=== PATIENT | male | born 1955 | race Caucasian/White ===

== ENCOUNTER 2017-04-22 12:25 | Outpatient (CLI) | payer OTHER | END 2017-04-22 12:26 | disposition home or self-care (01) | LOC: ULT 12:25 | PROVIDERS: ATTEND Internal Medicine | DX: R01.1 Cardiac murmur, unspecified (principal); I08.3 Combined rheumatic disorders of mitral, aortic and tricuspid valves | CPT/HCPCS: 93306 ==

== ENCOUNTER 2017-08-04 08:52 | Outpatient (CLI) | payer OTHER ==
[2017-08-04] MEDS ORDERED: Iopamidol 370 76% 100 ML VIAL ONE (16:53)
== END 2017-08-04 08:53 | disposition home or self-care (01) ==
LOC: BICCT 08:52
PROVIDERS: ATTEND Internal Medicine
DX: R91.1 Solitary pulmonary nodule (principal)
CPT/HCPCS: 71260

== ENCOUNTER 2018-04-25 09:08 | Outpatient (CLI) | payer OTHER ==
--- NOTE | 2018-04-25 14:53 | NM ---
RADIONUCLIDE 3 PHASE BONE SCAN: HISTORY: Right hip pain. Hip replacement 4 years ago. FINDINGS: Blood flow and blood pool images over the pelvis show no focal abnormalities or hip asymmetries. Leigh topenic defects at each hip are consistent with bilateral hip prostheses. Delayed images showed no a bnormal areas of uptake about the hips. Heterogeneous uptake at each wrist, elbow, shoulder, knee, a nd ankle and foot are consistent with scattered degenerative/osteoarthritic changes. IMPRESSION: 1. No acute abnormalities of the hips are demonstrated. 2. Scattered osteoarthritis of the appendicular skeleton. POS: CHERELLE
== END 2018-04-25 09:09 | disposition home or self-care (01) ==
LOC: NM 09:08
PROVIDERS: ATTEND Family Medicine Sports Medicine
DX: M25.551 Pain in right hip (principal); M19.91 Primary osteoarthritis, unspecified site; M19.032 Primary osteoarthritis, left wrist; M19.031 Primary osteoarthritis, right wrist; M19.022 Primary osteoarthritis, left elbow; M19.021 Primary osteoarthritis, right elbow; M19.012 Primary osteoarthritis, left shoulder; M19.011 Primary osteoarthritis, right shoulder; M17.0 Bilateral primary osteoarthritis of knee; M19.072 Primary osteoarthritis, left ankle and foot; M19.071 Primary osteoarthritis, right ankle and foot; Z96.641 Presence of right artificial hip joint
CPT/HCPCS: 78315; A9503

== ENCOUNTER 2019-03-24 07:48 | Outpatient (CLI) | payer MEDICARE, OTHER ==
--- NOTE | 2019-03-24 10:16 | RAD ---
3 VIEWS LEFT HAND: Date: 03/24/19 COMPARISON: None. HISTORY: Left hand pain. FINDINGS: 3 views of the left hand show no evidence of acute fracture or dislocation. There is joint space narr owing and osteophyte formation in the middle finger metacarpal phalangeal joint. Hardware is seen in the distal radius. There is joint space narrowing in the radiocarpal joint consistent with post-traum atic osteoarthritis. Mild joint space narrowing is seen in the interphalangeal joints of the fingers. IMPRESSION: Left hand osteoarthritis without acute osseous abnormality. POS: CET
--- NOTE | 2019-03-24 10:20 | RAD ---
3 VIEWS RIGHT HAND: Date: 03/24/19 COMPARISON: None. HISTORY: Pain in hand and wrist. FINDINGS: 3 views of right hand show no evidence of acute fracture or dislocation. Severe degenerative changes are seen in the wrist with joint space narrowing and osteophyte formation. There are osseous fragment s surrounding the wrist. A large cyst is seen in the distal radius. Minimal degenerative changes are seen in the hand. IMPRESSION: Severe right wrist degenerative change without acute osseous abnormality. POS: CET
== END 2019-03-24 07:49 | disposition home or self-care (01) ==
LOC: BICRAD 07:48
PROVIDERS: ATTEND Internal Medicine Rheumatology
DX: M25.541 Pain in joints of right hand (principal); M25.542 Pain in joints of left hand; M19.041 Primary osteoarthritis, right hand; M19.042 Primary osteoarthritis, left hand

== ENCOUNTER 2019-12-22 06:59 | Emergency (ER) | payer MEDICARE, OTHER ==
[2019-12-22 07:57] LABS: ALT (SGPT) 17 U/L (8-55); AST (SGOT) 17 U/L (5-34); Albumin 4.1 g/dL (3.4-4.8); Alkaline Phosphatase 76 U/L (40-110); Anion Gap 14 mmol/L (10-20); BUN (Urea Nitrogen) 28 mg/dL (8.4-25.7); Bilirubin, Total 0.6 mg/dL (0.2-1.2); Calc. Creatinine Clearance 0 mL/min (70-130); Calcium 9.3 mg/dL (7.8-10.44); Carbon Dioxide 16 mmol/L (23-31); Chloride 107 mmol/L (98-107); Estimated GFR-MDRD 67; Globulin 3.5 g/dL (2.4-3.5); Glucose 107 mg/dL (80-115); Potassium 3.7 mmol/L (3.5-5.1); Protein, Total 7.6 g/dL (5.8-8.1); Sodium 133 mmol/L (136-145)
[2019-12-22 08:00] LABS: Bacteria/HPF 2+ HPF (None Seen); Bilirubin Negative (Negative); Blood, Urine 1+ (Negative); Clarity Clear (Clear); Glucose, Urine (Dipstick) Normal (Negative); Ketone, Urine Negative (Negative); Leukocyte 500 Leu/uL (Negative); Nitrite 2+ (Negative); Protein, Urine (Dipstick) Negative (Neg-Trace); Squamous Epithelial None Seen HPF (0-3); Urobilinogen Normal mg/dL (Less than 2)
[2019-12-22 08:08] LABS: Band 32 % (5-11); Hemoglobin 13.1 g/dL (14.0-18.0); Lymphocytes 4 % (21-51); MDiff Complete? YES; Mean Corpuscular HGB CONC 33.3 g/dL (32.0-36.0); Mean Corpuscular Hemoglobin 27.8 pg (27.0-31.0); Mean Corpuscular Volume 83.4 fL (78.0-98.0); Mean Platelet Volume 9.6 fL (7.4-10.4); Monocytes 4 % (0-10); Neutrophil 60 % (42-75); Platelet Count 167 thou/uL (130-400); RBC Distribution Width 12.6 % (11.5-14.5); Red Blood Cell (RBC) Count 4.71 mill/uL (4.70-6.10); Vacuoles SLIGHT; White Blood Cell (WBC) Count 12.4 thou/uL (4.8-10.8)
--- NOTE | 2019-12-22 08:40 | RAD ---
PORTABLE CHEST: DATE: 12/22/2019. PROVIDED CLINICAL HISTORY: Fever. FINDINGS: Comparison 09/06/2013. Cardiac and mediastinal silhouette is within normal limits. No focal consolid ation, pleural fluid, or pneumothorax apparent. IMPRESSION: No evidence for an acute cardiopulmonary process. POS: RAMA
[2019-12-22] MEDS ORDERED: cefTRIAXone\\ROCEPHIN 2 GM VIAL ONE (10:04)
[2019-12-22 10:43] LABS: Lactic Acid 1.2 mmol/L (0.5-2.2)
== END 2019-12-22 11:05 | disposition home or self-care (01) ==
LOC: ERS 06:59
DX: N39.0 Urinary tract infection, site not specified (principal); N13.9 Obstructive and reflux uropathy, unspecified; E87.2 Acidosis; I10 Essential (primary) hypertension; F41.9 Anxiety disorder, unspecified
CPT/HCPCS: 36415; 51702; 71045; 80053; 81003; 81015; 83605; 85025; 87040; 87077; 87086; 87149; 87186; 93005; 94760; 96361; 96365; J0696

== ENCOUNTER 2019-12-23 13:18 | Inpatient (IN) | payer MEDICARE, OTHER ==
[~2019-12-23 13:18] MED LIST: Heparin 1,000 UNITS/ML VIAL ONE
[2019-12-23 13:57] LABS: Hemoglobin 12.7 g/dL (14.0-18.0); Mean Corpuscular HGB CONC 33.2 g/dL (32.0-36.0); Mean Corpuscular Hemoglobin 27.9 pg (27.0-31.0); Mean Corpuscular Volume 83.9 fL (78.0-98.0); Mean Platelet Volume 9.8 fL (7.4-10.4); Platelet Count 133 thou/uL (130-400); RBC Distribution Width 12.8 % (11.5-14.5); Red Blood Cell (RBC) Count 4.55 mill/uL (4.70-6.10); White Blood Cell (WBC) Count 11.7 thou/uL (4.8-10.8)
--- NOTE | 2019-12-23 14:03 | RAD ---
PORTABLE CHEST 12/23/19 PROVIDED CLINICAL HISTORY: Urinary tract infection. FINDINGS: Comparison 12/22/19. Cardiac and mediastinal silhouette is unchanged in appearance. No focal consolidation, pleural fluid or pneumothorax apparent. IMPRESSION: No evidence for an acute cardiopulmonary process. POS: RAMA
[2019-12-23 14:09] LABS: Band 19 % (5-11); Dohle Bodies SLIGHT; Lymphocytes 4 % (21-51); MDiff Complete? YES; Monocytes 1 % (0-10); Neutrophil 75 % (42-75); Platelet Morphology Comment Appears Adequate; RBC Morphology Normal
[2019-12-23 14:18] LABS: ALT (SGPT) 24 U/L (8-55); AST (SGOT) 28 U/L (5-34); Albumin 3.8 g/dL (3.4-4.8); Alkaline Phosphatase 79 U/L (40-110); Anion Gap 13 mmol/L (10-20); BUN (Urea Nitrogen) 17 mg/dL (8.4-25.7); Bilirubin, Total 0.4 mg/dL (0.2-1.2); Calc. Creatinine Clearance 0 mL/min (70-130); Calcium 8.9 mg/dL (7.8-10.44); Carbon Dioxide 18 mmol/L (23-31); Chloride 107 mmol/L (98-107); Estimated GFR-MDRD 61; Globulin 3.7 g/dL (2.4-3.5); Glucose 145 mg/dL (80-115); Potassium 3.7 mmol/L (3.5-5.1); Protein, Total 7.5 g/dL (5.8-8.1); Sodium 134 mmol/L (136-145)
[2019-12-23] MEDS ORDERED: MEROPENEM 1 GM/50 ML 1 GM in Premix Bag 1 BAG IVPB SCH (15:00)
[2019-12-23] MEDS ORDERED: Ibuprofen 200 MG TAB ONE (16:30)
[2019-12-23] MEDS ORDERED: Acetaminophen 325 MG TAB PO PRN (16:58)
[2019-12-23] MEDS ORDERED: hydrALAZINE 20 MG/ML VIAL SLOW IVP PRN (16:58)
[2019-12-23] MEDS ORDERED: Ondansetron PF 4 MG/2 ML Vial IVP PRN (16:58)
[2019-12-23] MEDS ORDERED: Ondansetron ODT 4 MG TAB PO PRN (16:58)
[2019-12-23 18:24] VITALS: BMI 31.5
--- NOTE | 2019-12-23 21:46 | HP ---
PRIMARY CARE PHYSICIAN: Arnulfo Miles MD UROLOGIST: Dr. Akers. CHIEF COMPLAINT: I got call back and told that my blood and urine cultures are positive. HISTORY OF PRESENT ILLNESS: Mr. Segal is a pleasant 64-year-old gentleman, who has a history of hypertension and BPH. He says he has had BPH for about eight years and he thought things are going fairly well. He says that on early Wednesday morning, he started having trouble urinating. He says he frankly could not get the urine out. Prior to that, he was having a little bit of dripping and dribbling. Then later on that Wednesday, he started having fever and chills and says his temperature was as high as 102. He also noted some nausea and says that he vomited one time yesterday. He denied any abdominal pain however, but said that he did note some pain in the lower back. As a result of his symptoms, he came to the emergency room yesterday where they did a urine culture and UA, as well as blood cultures. They placed a Chavis catheter in and placed a leg bag on him, and gave him IV dose of Rocephin and discharged him from the ER. He says that he got a call back this morning stating that his urine and blood cultures had come back positive and for this reason, he needed admission to the hospital. Otherwise, the patient has no other complaints. He did have a cardiac stent placed about a month ago. He said at that time he was just having some dyspnea, but no chest pain. He says that he had one stent placed to the " maker" by Dr. Monge, but he denies any chest pain or shortness of breath now and no other symptoms. REVIEW OF SYSTEMS: All systems were reviewed and are negative except for that mentioned in the history of present illness. PAST MEDICAL HISTORY: Significant for BPH for about eight years, hypertension, and coronary artery disease. PAST SURGICAL HISTORY: The patient had a coronary stent placed to the LAD about a month ago. ALLERGIES: NO KNOWN DRUG ALLERGIES. SOCIAL HISTORY: He is , has 2 children. He says he never smoked. He is not a drinker. No drug use. His is his surrogate decision maker and he would like to be a full code. FAMILY HISTORY: Significant for heart disease. CURRENT MEDICATIONS: Include: 1. Plavix 75 mg p.o. daily. 2. Aspirin 81 mg p.o. daily. 3. Lexapro 10 mg p.o. daily. 4. Zyrtec daily. 5. Vitamin D3 of 5000 units daily. 6. Myrbetriq 50 mg daily. 7. Lisinopril 20 mg at bedtime. 8. Flomax 0.4 mg daily. PHYSICAL EXAMINATION: GENERAL: He is alert and oriented. He appears to be in no acute distress. He is well developed and well nourished. VITAL SIGNS: Blood pressure was 105/74, heart rate 86, respiratory rate of 22, and temperature was 99.6. HEENT: Pupils are equal, round, and reactive. Extraocular muscles are intact. Sclerae anicteric. NECK: There is no adenopathy, no bruits. LUNGS: Clear to auscultation. There is no wheezing, no rales, no rhonchi. CARDIOVASCULAR: He had a normal S1, S2. No S3 or S4 was appreciated. He had a very faint 2/6 systolic flow murmur. ABDOMEN: Obese. It is soft, nontender, and nondistended. Positive for bowel sounds. There is no rebound, no guarding, no organomegaly. EXTREMITIES: There is no clubbing or cyanosis. No edema. No joint effusions. No calf tenderness. NEUROLOGIC: His cranial nerves were essentially intact. SKIN AND INTEGUMENT: There are no significant skin changes. No rash is noted. LABORATORY RESULTS: White blood cell count 11.7, hemoglobin 12.7, hematocrit is 38.2, and platelet count is 133. sodium was 134, potassium 3.7, chloride is 107, CO2 is 18, BUN is 17, creatinine 1.19, glucose was 145. On his urinalysis, this is from yesterday on 12/21, urine was clear and light yellow. Nitrite positive with 2+ nitrite, positive leukocyte esterase, and 2+ bacteria. On his chest x-ray, borderline cardiomegaly, and I do not see any evidence of any infiltrates. The costovertebral margins are sharp and otherwise no specific infiltrates or effusions and that is by my reading. Urine culture is significant for gram-negative joanna and blood culture is growing E coli, which had some characteristics of having an extended beta lactamase licensed sales producer. ASSESSMENT: This is a pleasant 64-year-old gentleman, who was admitted to the hospital due to fever and urinary tract infection. He also had leukocytosis as well. There was concern that this could be a multi-drug resistant strain of Escherichia coli. 1. For urinary tract infection due to possible ESBL Escherichia coli, I agree with transitioning his antibiotics to meropenem. We will need to consult ID to help with the antibiotic choice and length of therapy. 2. Urinary retention due to obstructive uropathy from BPH. We will consult his urologist to see if he has any additional recommendations. 3. History of coronary artery disease. We will need to reconcile and restart his home medications especially the Plavix given the recent stent. 4. Hypertension. Once again reconcile and restart his home medications. The patient will also be placed on deep venous thrombosis, as well as gastrointestinal prophylaxis. Job ID: [id number]
[2019-12-23] MEDS: MEROPENEM 1 GM/50 ML 1 GM in Premix Bag 1 BAG IVPB SCH (22:42)
[2019-12-23] MEDS: Tamsulosin HCl 0.4 MG CAP PO SCH (22:42)
[2019-12-24] MEDS: MEROPENEM 1 GM/50 ML 1 GM in Premix Bag 1 BAG IVPB SCH ×3 (05:33→21:50)
[2019-12-24 06:39] LABS: Anion Gap 11 mmol/L (10-20); BUN (Urea Nitrogen) 19 mg/dL (8.4-25.7); Calc. Creatinine Clearance 115 mL/min (70-130); Calcium 8.5 mg/dL (7.8-10.44); Carbon Dioxide 22 mmol/L (23-31); Chloride 107 mmol/L (98-107); Estimated GFR-MDRD 85; Glucose 115 mg/dL (80-115); Potassium 4.2 mmol/L (3.5-5.1); Sodium 136 mmol/L (136-145)
[2019-12-24] MEDS: Lisinopril 20 MG TAB PO SCH (07:55)
[2019-12-24] MEDS: Clopidogrel Bisulfate 75 MG TAB PO SCH (07:55)
[2019-12-24] MEDS: Enoxaparin Sodium 40 MG/0.4 ML SYRINGE SC SCH (07:55)
[2019-12-24 07:56] LABS: #Basophils 0.1 thou/uL (0.0-0.2); #Eosinphils 0.1 thou/uL (0.0-0.7); #Lymphocytes 0.6 thou/uL (1.20-3.40); #Monocytes 0.6 thou/uL (0.11-0.59); #Neutrophils 6.6 thou/uL (1.40-6.50); %Basophils 0.7 % (0.0-1.0); %Eosinophils 1.2 % (0.0-10.0); %Monocytes 7.4 % (0.0-10.0); %Neutrophils 82.7 % (42.0-75.0); Hemoglobin 11.7 g/dL (14.0-18.0); MDiff Complete? YES; Mean Corpuscular HGB CONC 33.3 g/dL (32.0-36.0); Mean Corpuscular Hemoglobin 28.2 pg (27.0-31.0); Mean Corpuscular Volume 84.7 fL (78.0-98.0); Mean Platelet Volume 10.1 fL (7.4-10.4); Platelet Count 117 thou/uL (130-400); Platelet Morphology Comment Appears Decreased; RBC Distribution Width 12.8 % (11.5-14.5); Red Blood Cell (RBC) Count 4.15 mill/uL (4.70-6.10); White Blood Cell (WBC) Count 7.9 thou/uL (4.8-10.8)
[2019-12-24] MEDS: Aspirin 81 mg Enteric Coated Tablet PO SCH (07:56)
--- NOTE | 2019-12-24 10:58 | PDOC.HOSPP ---
- Subjective Encounter Date: 12/24/19 Encounter Time: 10:56 Subjective: Mr. Varghese was seen today in follow-up of UTI and obstructive uropathy. He says he feels better today. His appetite has improved. - Objective Vital Signs & Weight: Vital Signs (12 hours) Temp Pulse Resp BP Pulse Ox 12/24/19 08:00 97 12/24/19 07:48 98.7 F 73 18 130/77 97 12/24/19 04:00 99.4 F 69 18 138/85 98 12/24/19 00:00 98.3 F 58 L 18 134/75 96 Weight Weight 220 lb I&O: 12/23/19 12/24/19 12/25/19 06:59 06:59 06:59 Intake Total 420 240 Output Total 525 Balance -105 240 Result Diagrams: 12/24/19 05:37 12/24/19 05:37 Hospitalist ROS - Medication Medications: Active Medications Generic Name Dose Route Start Last Admin Trade Name Freq PRN Reason Stop Dose Admin Aspirin 81 mg 12/24/19 09:00 12/24/19 07:56 Ecotrin PO 81 mg DAILY VIRGEN Administration Clopidogrel Bisulfate 75 mg 12/24/19 09:00 12/24/19 07:55 Plavix PO 75 mg DAILY VIRGEN Administration Enoxaparin Sodium 40 mg 12/24/19 09:00 12/24/19 07:55 Lovenox SC 40 mg 0900 VIRGEN Administration Meropenem 1 gm/ Device 50 mls @ 100 mls/hr 12/23/19 22:00 12/24/19 05:33 IVPB 50 mls Q8HR VIRGEN Administration Lisinopril 20 mg 12/24/19 09:00 12/24/19 07:55 Zestril PO 20 mg DAILY VIRGEN Administration Pantoprazole Sodium 40 mg 12/24/19 09:00 12/24/19 07:55 Protonix PO 40 mg DAILY VIRGEN Administration Tamsulosin HCl 0.4 mg 12/23/19 21:00 12/23/19 22:42 Flomax PO 0.4 mg HS VIRGEN Administration - Exam Eye: PERRL, anicteric sclera Heart: RRR, no murmur, no gallops, no rubs, normal peripheral pulses Respiratory: CTAB, no wheezes, no rales, no ronchi, normal chest expansion, no tachypnea Gastrointestinal: soft, non-tender, non-distended, normal bowel sounds, no palpable masses Extremities: no cyanosis, no clubbing, no edema Hosp A/P (1) UTI (urinary tract infection) Status: Acute (2) Obstructive uropathy Code(s): N13.9 - OBSTRUCTIVE AND REFLUX UROPATHY, UNSPECIFIED Status: Acute (3) BPH (benign prostatic hyperplasia) Code(s): N40.0 - BENIGN PROSTATIC HYPERPLASIA WITHOUT LOWER URINRY TRACT SYMP Status: Acute (4) CAD (coronary artery disease) Code(s): I25.10 - ATHSCL HEART DISEASE OF [place] CORONARY ARTERY W/O ANG PCTRS Status: Acute - Plan * UTI due to E. COli- continue Meropenem * Due to the multi-drug resistent pattern of this organism- will consult ID * Obstructive Uropathy due to BPH- owens has been placed * Continue Flomax, and Urology has been consulted * CAD with recent STENT- continue aspirin and plavix
--- NOTE | 2019-12-24 13:54 | CON ---
DATE OF CONSULTATION: PRIMARY UROLOGIST: Refugio Akers MD HISTORY OF PRESENT ILLNESS: Mr. Segal is a pleasant 64-year-old male with history of BPH, hypospadias, recurrent urethral stricture, prior history of urolithiasis. He was previously followed by Dr. Oleary in the remote past, and subsequently transitioned to Dr. Akers. The patient has a followup appointment with Dr. Akers this . Pertinent imaging, clinical history, imaging, which I have reviewed myself below. The patient with history of urethral stricture in which he relates that he was dilated a while back by Dr. Akers as well and a urodynamic test was also performed. He presented to the emergency room few days ago as he had febrile UTI of 102. Urine culture and blood culture were obtained. He was discharged with oral antibiotic therapy after Rocephin provided. However, ER did call the patient back to be admitted as blood culture and urine culture demonstrates multi-drug resistant UTI. Currently, he is on IV meropenem, which is appropriate based on sensitivity and feel significantly better. He has a 14-[place] Chavis catheter in place in which he relates that it was somewhat difficult to place, however, it drains without significant issues. PAST MEDICAL HISTORY: Includes BPH, hypospadias, history of recurrent urethral stricture, hypertension, coronary artery disease, and prior history of urolithiasis. SURGICAL HISTORY: Include coronary artery stent, left ureteroscopy, laser lithotripsy in [address] Oleary, stricture dilatation by Dr. Oleary, subsequently Dr. Akers. ALLERGIES: NO KNOWN DRUG ALLERGIES. 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 Denies history of tobacco abuse. No illicit drug use. FAMILY HISTORY: Positive for coronary artery disease. HOME MEDICATIONS: Include; 1. Plavix. 2. Aspirin. 3. Lexapro. 4. Vitamin D. 5. Myrbetriq. 6. Lisinopril. 7. Flomax. PHYSICAL EXAMINATION: VITAL SIGNS: Stable. Afebrile. GENERAL: He is currently doing well. He is in no acute distress. Pleasant male. HEENT: Grossly unremarkable. HEART: Regular rate. LUNGS: Clear. ABDOMEN: Soft, protuberant. No rigidity. No rebound. No suprapubic tenderness. GENITOURINARY: Demonstrates a 14-[place] catheter. I did secure it as it was not appropriately secured, attached to gravity bag. He does have evidence of coronal hypospadias. No discharge is noted. Testes are descended with no evidence of intratesticular mass. BIJU is deferred due to presenting febrile UTI. EXTREMITIES: No cyanosis, clubbing, or edema. NEUROLOGIC: No gross focal deficits of concern. PSYCHIATRIC: Appears to be appropriate and intact. SKIN: No lesions seen. PERTINENT LABORATORY DATA: White count previously 12, currently 7.9; hemoglobin 11; and platelet 117. Creatinine 0.9. Blood culture and urine culture from the ER demonstrates multi-drug resistant E coli sensitive to meropenem. Repeat blood culture is negative. I did review his prior CT stone protocol dating back 2012, which he did have urolithiasis and nephrolithiasis, subsequently treated by Dr. Oleary. IMPRESSION AND PLAN: Mr. Segal is a pleasant 64-year-old male with, 1. History of hypospadias. 2. Recurrent urethral stricture. 3. Benign prostatic hyperplasia, presents with multi-drug resistant urinary tract infection. Currently, he is doing well on appropriate antibiotic regimen. The patient will require Infectious Disease consult, IV PICC line to transition to outpatient meropenem. He is clinically stable. Continue indwelling urethral Chavis catheter. I will notify Dr. Akers tomorrow morning, who will resume Mr. Sgeal' care. Job ID: [id number] [facility]
--- NOTE | 2019-12-24 21:28 | CON ---
DATE OF CONSULTATION: 12/24/2019 REASON FOR CONSULTATION: Urosepsis. HISTORY OF PRESENT ILLNESS: A 64-year-old with history of urethral stricture, BPH, and nephrolithiasis with prior lithotripsy, who was well until this past when he developed difficulty to urinate. He came to the emergency room, had a catheter placed with some difficulty and then subsequently the blood culture returned positive, so he was called in and admitted. He was having fever and chills, feeling unwell, now is feeling better on antimicrobial therapy. He has also hypertension history and hip replacements. No headaches. No sore throat, odynophagia, or dysphagia. No cough. No dyspnea or chest pain. Some back pain in the lateral paravertebral area in the lower lumbosacral spine region. Chavis catheter in place. No other joint symptoms. No neurological symptoms. PAST MEDICAL HISTORY: Nephrolithiasis, lithotripsy laser, stenting, urethral stenosis repair or dilation, and hypertension. PAST SURGICAL HISTORY: Bilateral hip replacements, coronary artery disease with cardiac stents, and hernia repair. 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 Never smoker. Drinks occasionally. . Lives in the area. ALLERGIES: NONE. CURRENT MEDICATIONS: 1. Tylenol. 2. Ecotrin. 3. Plavix. 4. Lovenox. 5. Apresoline. 6. Zestril. 7. Meropenem. 8. Protonix. 9. Flomax. PHYSICAL EXAMINATION: VITAL SIGNS: T-max 99.8. Other vital signs are normal. O2 saturations 97 on room air. GENERAL: Appears in no distress, oriented. SKIN: Chavis catheter. Peripheral IV access. No lymphadenopathy. HEENT: Ocular movements conjugate. Oral cavity normal, still quite a few teeth in place. NECK: Supple. LUNGS: Symmetric clear breath sounds. HEART: S1 and S2. Regular rate. No S3 or S4. ABDOMEN: Soft, not distended or tender. No ascites. No bladder distention. EXTREMITIES: No joint inflammatory activity. Pulses 2+ in dorsalis pedis. Plantar responses are flexor. Moves all extremities equally. Cognitive function appears to be intact. LABORATORY DATA: Sodium 134 and now 136, creatinine is down to 0.9. Liver profile normal. Globulin 3.7. White cell count is 11.7 and now 7.9, hemoglobin 11.7, and platelets 117,000. On arrival, 19% bands. Cultures, one set of blood cultures from 12/21 with E. coli, which has an ESBL phenotype characteristic. Chest x-ray, no evidence of acute cardiopulmonary process. ASSESSMENT AND PLAN: Nephrolithiasis in the past, benign prostatic hyperplasia, urethral stricture, hypospadias, now with urosepsis due to extended-spectrum beta-lactamases Escherichia coli. The patient will continue with the Chavis catheter until Dr. Akers sees him in the outpatient setting. We will do a voiding trial then. His last stone protocol was quite a while ago, so we are going to go ahead and repeat a stone protocol study. Continue meropenem, peripherally inserted central catheter line placement, and plan outpatient treatment. Duration of therapy probably around 2 weeks approximately or as long as he takes for the urological interventions to be completed. Job ID: [id number]
[2019-12-24] MEDS: Tamsulosin HCl 0.4 MG CAP PO SCH (21:50)
[2019-12-25 05:49] LABS: INR-International Normal Ratio 1.2; Prothrombin Time 14.9 sec (12.0-14.7)
[2019-12-25] MEDS: MEROPENEM 1 GM/50 ML 1 GM in Premix Bag 1 BAG IVPB SCH ×3 (06:09→21:12)
[2019-12-25] MEDS: Aspirin 81 mg Enteric Coated Tablet PO SCH (08:09)
[2019-12-25] MEDS: Lisinopril 20 MG TAB PO SCH (08:09)
[2019-12-25] MEDS: Enoxaparin Sodium 40 MG/0.4 ML SYRINGE SC SCH (08:09)
[2019-12-25] MEDS: Clopidogrel Bisulfate 75 MG TAB PO SCH (08:09)
--- NOTE | 2019-12-25 10:54 | SPC ---
Left upper extremity PICC placement sonographic guided HISTORY: Urinary tract infection. FINDINGS: After explaining the procedure and answering all questions, the left upper extremity was pr epped and draped in usual sterile fashion. Sterile technique, buffered local anesthesia, sonographic guidance, and a 22-gauge needle were used t o carefully access the left basilic vein. Standard technique was used to place the tip of a 5 [place]ali single lumen PICC so that the tip lies at the level of the cavoatrial junction. Catheter was flushed and secured externally. Patient tolerated the procedure well and was returned in unchanged condition. Fluoroscopy time 0 seconds. IMPRESSION : Left upper extremity PICC is ready for use.
--- NOTE | 2019-12-25 17:34 | PDOC.HOSPP ---
- Subjective Encounter Date: 12/25/19 Encounter Time: 17:31 Subjective: Mr. Varghese was seen today in follow-up of BPH and UTI he does not have any complaints. He says he is feeling much better. - Objective Vital Signs & Weight: Vital Signs (12 hours) Temp Pulse Resp BP BP Pulse Ox 12/25/19 08:30 98.2 F 12/25/19 08:09 111/76 12/25/19 08:00 95 12/25/19 07:37 84 18 111/76 95 Weight Weight 220 lb I&O: 12/24/19 12/25/19 12/26/19 06:59 06:59 06:59 Intake Total 420 1400 600 Output Total 525 700 Balance -105 700 600 Result Diagrams: 12/24/19 05:37 12/24/19 05:37 Hospitalist ROS - Medication Medications: Active Medications Generic Name Dose Route Start Last Admin Trade Name Freq PRN Reason Stop Dose Admin Acetaminophen 650 mg 12/23/19 16:58 12/24/19 15:56 Tylenol PO 650 mg Q4H PRN Administration Headache/Fever/Mild Pain (1-3) Aspirin 81 mg 12/24/19 09:00 12/25/19 08:09 Ecotrin PO 81 mg DAILY VIRGEN Administration Clopidogrel Bisulfate 75 mg 12/24/19 09:00 12/25/19 08:09 Plavix PO 75 mg DAILY VIRGEN Administration Enoxaparin Sodium 40 mg 12/24/19 09:00 12/25/19 08:09 Lovenox SC 40 mg 0900 VIRGEN Administration Meropenem 1 gm/ Device 50 mls @ 100 mls/hr 12/23/19 22:00 12/25/19 14:38 IVPB 50 mls Q8HR VIRGEN Administration Lisinopril 20 mg 12/24/19 09:00 12/25/19 08:09 Zestril PO 20 mg DAILY VIRGEN Administration Pantoprazole Sodium 40 mg 12/24/19 09:00 12/25/19 08:09 Protonix PO 40 mg DAILY VIRGEN Administration Tamsulosin HCl 0.4 mg 12/23/19 21:00 12/24/19 21:50 Flomax PO 0.4 mg HS IVRGEN Administration - Exam Eye: PERRL, anicteric sclera Heart: RRR, no murmur, no gallops, no rubs, normal peripheral pulses Respiratory: CTAB, no wheezes, no ronchi, normal chest expansion Extremities: no cyanosis, no edema Hosp A/P (1) UTI (urinary tract infection) Status: Acute (2) Obstructive uropathy Code(s): N13.9 - OBSTRUCTIVE AND REFLUX UROPATHY, UNSPECIFIED Status: Acute (3) BPH (benign prostatic hyperplasia) Code(s): N40.0 - BENIGN PROSTATIC HYPERPLASIA WITHOUT LOWER URINRY TRACT SYMP Status: Acute (4) CAD (coronary artery disease) Code(s): I25.10 - ATHSCL HEART DISEASE OF [place] CORONARY ARTERY W/O ANG PCTRS Status: Acute - Plan * UTI due to E. COli- continue Meropenem * ID input appreciated- he will need at least 2 weeks of IV Antibiotics * PICC line has been placed * Obstructive Uropathy due to BPH- owens has been placed * CAD- stable * Hopefully home tomorrow once IV antibiotics arranged
[2019-12-25] MEDS: Tamsulosin HCl 0.4 MG CAP PO SCH (20:32)
[2019-12-26] MEDS: MEROPENEM 1 GM/50 ML 1 GM in Premix Bag 1 BAG IVPB SCH (05:22)
[2019-12-26 07:13] VITALS: BP 151/83; TEMP 97.9
[2019-12-26] MEDS: Lisinopril 20 MG TAB PO SCH (08:17)
[2019-12-26] MEDS: Clopidogrel Bisulfate 75 MG TAB PO SCH (08:17)
[2019-12-26] MEDS: Aspirin 81 mg Enteric Coated Tablet PO SCH (08:17)
[2019-12-26] MEDS: Enoxaparin Sodium 40 MG/0.4 ML SYRINGE SC SCH (08:17)
--- NOTE | 2019-12-26 19:06 | DIS ---
DATE OF ADMISSION: 12/23/2019 DATE OF DISCHARGE: 12/26/2019 PRIMARY CARE PHYSICIAN: Arnulfo Miles MD DISCHARGE DISPOSITION: Home. DISCHARGE DIAGNOSES: 1. Urinary tract infection. 2. Obstructive uropathy secondary to benign prostatic hypertrophy. 3. Hypertension. 4. Coronary artery disease. DISCHARGE MEDICATIONS: Include: 1. Invanz 1 g daily with the end date of January 06. 2. Rapaflo 4 mg daily. 3. Flomax 0.4 mg at bedtime. 4. Myrbetriq 50 mg extended release daily. 5. Lisinopril 40 mg daily. 6. Lexapro 10 mg daily. 7. Plavix 75 mg p.o. daily. 8. Vitamin D3 of 1000 units p.o. daily. 9. Zyrtec 10 mg daily. 10. Aspirin 81 mg p.o. daily. CODE STATUS: Full code. ALLERGIES: NO KNOWN DRUG ALLERGIES. HOSPITAL COURSE: Mr. Segal is a pleasant 64-year-old gentleman, who presented to the emergency room after he had been called back. He had been in the ER the day before due to urinary retention and a urinary tract infection. Urine and blood cultures were positive and he was called to come back. The cultures eventually grew E coli, which had an extended beta-lactamase broadcast producer. It was extended beta-lactamase broadcast producer. He was started on meropenem and ID as well as Urology was consulted. He had placement of a Chavis catheter on his previous stay in the ER and it was recommended that he continue to wear the catheter and keep it in place on the time of discharge. The patient had a PICC line placed and arrangements were made for him to receive outpatient IV antibiotics and once these arrangements were made, he was able to be discharged home. Job ID: [id number]
== END 2019-12-26 13:18 | disposition home or self-care (01) | DRG 690 ==
LOC: ERS 13:18 → T4-B 14:40
PROVIDERS: ADMIT Internal Medicine; ATTEND Internal Medicine
PROC: 02HV33Z Insertion of Infusion Device into Superior Vena Cava, Percutaneous Approach (ICD-10-PCS; principal; 2019-12-25)
DX: N39.0 Urinary tract infection, site not specified (principal); N13.9 Obstructive and reflux uropathy, unspecified; I10 Essential (primary) hypertension; I25.10 Atherosclerotic heart disease of native coronary artery without angina pectoris; Z96.643 Presence of artificial hip joint, bilateral; B96.20 Unspecified Escherichia coli [E. coli] as the cause of diseases classified elsewhere; N40.1 Benign prostatic hyperplasia with lower urinary tract symptoms; Z95.5 Presence of coronary angioplasty implant and graft
CPT/HCPCS: 36415; 36569; 51702; 71045; 80048; 80053; 81003; 81015; 83605; 85025; 85610; 87040; 87077; 87086; 87149; 87186; 93005; 94760; 96361; 96365; C1751; J0696; J1644; J1650; J2185

== ENCOUNTER 2020-05-12 02:24 | Inpatient (IN) | payer MEDICARE ==
[2020-05-12 02:48] LABS: #Lymphocytes 0.9 thou/uL (1.20-3.40); #Monocytes 0.2 thou/uL (0.11-0.59); #Neutrophils 3.6 thou/uL (1.40-6.50); %Basophils 0.5 % (0.0-1.0); %Eosinophils 0.3 % (0.0-10.0); %Lymphocytes 18.7 % (21.0-51.0); %Monocytes 4.6 % (0.0-10.0); Hemoglobin 9.7 g/dL (14.0-18.0); Mean Corpuscular HGB CONC 33.1 g/dL (32.0-36.0); Mean Corpuscular Hemoglobin 27.2 pg (27.0-31.0); Mean Platelet Volume 10.3 fL (7.4-10.4); Platelet Count 179 thou/uL (130-400); RBC Distribution Width 13.3 % (11.5-14.5); Red Blood Cell (RBC) Count 3.57 mill/uL (4.70-6.10); White Blood Cell (WBC) Count 4.7 thou/uL (4.8-10.8)
[2020-05-12 02:55] LABS: INR-International Normal Ratio 1.3; PTT 34.8 sec (22.9-36.1); Prothrombin Time 16.3 sec (12.0-14.7)
[2020-05-12] MEDS ORDERED: Pantoprazole 40 MG VIAL ONE ×2 (03:01→10:30)
[2020-05-12 03:05] LABS: ALT (SGPT) 13 U/L (8-55); AST (SGOT) 18 U/L (5-34); Albumin 3.4 g/dL (3.4-4.8); Alkaline Phosphatase 72 U/L (40-110); Anion Gap 16 mmol/L (10-20); BUN (Urea Nitrogen) 38 mg/dL (8.4-25.7); Bilirubin, Total 0.3 mg/dL (0.2-1.2); Calc. Creatinine Clearance 0 mL/min (70-130); Calcium 8.5 mg/dL (7.8-10.44); Carbon Dioxide 17 mmol/L (23-31); Chloride 110 mmol/L (98-107); Estimated GFR-MDRD 64; Globulin 3.3 g/dL (2.4-3.5); Glucose 186 mg/dL (80-115); Potassium 3.9 mmol/L (3.5-5.1); Protein, Total 6.7 g/dL (5.8-8.1); Sodium 139 mmol/L (136-145)
[2020-05-12 03:28] LABS: CKMB 0.6 ng/mL (0-6.6)
[2020-05-12] MEDS ORDERED: Octreotide Acetate 50 MCG/ML AMP ONE (04:44)
[2020-05-12] MEDS ORDERED: Ondansetron ODT 4 MG TAB PO PRN (05:11)
[2020-05-12] MEDS ORDERED: Octreotide Acetate 1,250 MCG in Sodium Chloride 0.9% 250 ML 250 ML IVPB SCH (05:15)
--- NOTE | 2020-05-12 05:18 | PDOC.HHP ---
Hospitalist HPI - History of Present Illness hematemesis History of Present Illness: Case of an 65-year-old male with a omhx of htn and cad who come to hospital due to vomiting a large blood clot. Patient states he was at home had some epigastric discomfort and vomited a large blood clot. he called EMS, upon arrival they visualized the blood clot which they described as the size of a dinner plate. Patient was hypotensive and tachycardic during transportation however did maintain mental status. Patient arrives to the emergency department tachycardic and hypotensive, after iv hydration patient v/s improved, after a while patient became hypotensive again and decision was made give 1 prbc. after 1 prbc hg was recheck and there was no change of hg suggesting pt was still bleeding another unit was ordered. of note patient is covid 19+, he has been having low grade fevers for which he got tested on thrusday and was postive, has been taken tylenol prn, denies any use of nsaid or alcohol use. patient denies any chest pain diaphoresis or sob. GI on called was called and notified patient will be taken to EGD in am, hospitalist was called for admission. patient denies any chest pain palpitation or diaphoresis Hospitalist ROS - Review of Systems All other systems reviewed; all pertinent +/- noted in HPI/Subj Hospitalist History - Past Surgical History Past Surgical History: reports: Hernia Repair, Total Hip Replacement - Family History Family History: reports: cardiac disorder, hypertension - Social History Smoking Status: Never smoker Alcohol: reports: None Drugs: reports: none - Exam General Appearance: NAD, awake alert Eye: PERRL, anicteric sclera ENT: normocephalic atraumatic, no oropharyngeal lesions, moist mucosa Neck: supple, symmetric, no JVD, no thyromegaly Heart: RRR, no murmur, no gallops, no rubs Respiratory: CTAB, no wheezes, no rales, no ronchi Gastrointestinal: soft, non-distended, normal bowel sounds, tender to palpation Extremities: no cyanosis, no clubbing, no edema Skin: normal turgor, no lesions, no rashes Neurological: cranial nerve grossly intact, normal sensation to touch, no weakness Musculoskeletal: normal tone, normal strength, no muscle wasting Psychiatric: normal affect, normal behavior, A&O x 3 Hospitalist Results - Labs Result Diagrams: 05/12/20 05:21 05/12/20 02:37 Lab results: WBC 4.7 thou/uL (4.8-10.8) L 05/12/20 02:37 Hgb 9.7 g/dL (14.0-18.0) L 05/12/20 02:37 Hct 29.3 % (42.0-52.0) L 05/12/20 02:37 MCV 82.0 fL (78.0-98.0) 05/12/20 02:37 Plt Count 179 thou/uL (130-400) 05/12/20 02:37 Neutrophils % 76.0 % (42.0-75.0) H 05/12/20 02:37 Sodium 139 mmol/L (136-145) 05/12/20 02:37 Potassium 3.9 mmol/L (3.5-5.1) 05/12/20 02:37 Chloride 110 mmol/L (98-107) H 05/12/20 02:37 Carbon Dioxide 17 mmol/L (23-31) L 05/12/20 02:37 BUN 38 mg/dL (8.4-25.7) H 05/12/20 02:37 Creatinine 1.15 mg/dL (0.7-1.3) 05/12/20 02:37 Glucose 186 mg/dL (80-115) H 05/12/20 02:37 Calcium 8.5 mg/dL (7.8-10.44) 05/12/20 02:37 Total Bilirubin 0.3 mg/dL (0.2-1.2) 05/12/20 02:37 AST 18 U/L (5-34) 05/12/20 02:37 ALT 13 U/L (8-55) 05/12/20 02:37 Alkaline Phosphatase 72 U/L (40-110) 05/12/20 02:37 CK-MB (CK-2) 0.6 ng/mL (0-6.6) 05/12/20 02:37 Troponin I 0.032 ng/mL (< 0.028) H 05/12/20 02:37 Serum Total Protein 6.7 g/dL (5.8-8.1) 05/12/20 02:37 Albumin 3.4 g/dL (3.4-4.8) 05/12/20 02:37 Hospitalist H&P A/P - Problem (1) Upper GI bleeding Code(s): K92.2 - GASTROINTESTINAL HEMORRHAGE, UNSPECIFIED Status: Acute (2) HTN (hypertension) Code(s): I10 - ESSENTIAL (PRIMARY) HYPERTENSION Status: Acute (3) BPH (benign prostatic hyperplasia) Code(s): N40.0 - BENIGN PROSTATIC HYPERPLASIA WITHOUT LOWER URINRY TRACT SYMP Status: Acute (4) CAD (coronary artery disease) Code(s): I25.10 - ATHSCL HEART DISEASE OF [place] CORONARY ARTERY W/O ANG PCTRS Status: Acute - Plan Plan: 65y/o male with the stated pmhx who presents with upper gi bleeding upper gi bleeding - episode of vomiting a blood cloth and epigastric pain - started on protonix 40mg iv q 12 -hg q 8hr - gi consulted - egd in am - npo - octeotride drip - rocephin prophylaxis - 2 prbcs cad / htn / bph - holding medication that can lower b/p, restart when more stable covid 19 - tylenol prn - isolation precauation
[2020-05-12 05:32] LABS: #Lymphocytes 0.6 thou/uL (1.20-3.40); #Monocytes 0.2 thou/uL (0.11-0.59); #Neutrophils 2.7 thou/uL (1.40-6.50); %Basophils 0.5 % (0.0-1.0); %Eosinophils 0.2 % (0.0-10.0); %Lymphocytes 16.4 % (21.0-51.0); %Monocytes 6.1 % (0.0-10.0); %Neutrophils 76.9 % (42.0-75.0); Mean Corpuscular HGB CONC 31.4 g/dL (32.0-36.0); Mean Corpuscular Hemoglobin 26.3 pg (27.0-31.0); Mean Platelet Volume 9.8 fL (7.4-10.4); Platelet Count 137 thou/uL (130-400); RBC Distribution Width 13.5 % (11.5-14.5); White Blood Cell (WBC) Count 3.5 thou/uL (4.8-10.8)
[2020-05-12 05:55] LABS: Troponin I 0.043 ng/mL (< 0.028)
[2020-05-12] MEDS ORDERED: Senokot S 8.6-50 MG TAB PO PRN (07:53)
[2020-05-12] MEDS ORDERED: Acetaminophen 500 MG TAB PO PRN (07:53)
[2020-05-12] MEDS ORDERED: Calcium Carbonate 500 MG ChewTAB PO PRN (07:53)
[2020-05-12] MEDS ORDERED: Diabetic Tussin 200 MG/10 ML UDCUP PO PRN (07:53)
[2020-05-12] MEDS ORDERED: Zolpidem Tartrate 5 MG TAB PO PRN (07:53)
[2020-05-12] MEDS ORDERED: Sodium Chloride 0.65% Nasal 44 ML BOT EA NARE PRN (07:53)
[2020-05-12] MEDS ORDERED: Bisacodyl 10 MG SUPP PR PRN (07:53)
[2020-05-12] MEDS ORDERED: Cepastat Lozenges 1 LOZ PO PRN (07:53)
[2020-05-12] MEDS ORDERED: Loratadine 10 MG TAB PO PRN (07:53)
[2020-05-12] MEDS ORDERED: hydrALAZINE 20 MG/ML VIAL SLOW IVP PRN (07:53)
[2020-05-12] MEDS ORDERED: cefTRIAXone\\ROCEPHIN 1 GM VIAL ONE (10:30)
[2020-05-12] MEDS: Pantoprazole 40 MG VIAL IVP SCH (10:39)
[2020-05-12] MEDS: cefTRIAXone\\ROCEPHIN 1 GM in Sodium Chloride 0.9% 100 ML IVPB SCH (10:39)
[2020-05-12] MEDS: 1/2 NS w/KCL 20 mEq 1,000 ML IV SCH (11:19)
[2020-05-12 12:22] LABS: Hemoglobin 10.3 g/dL (14.0-18.0)
--- NOTE | 2020-05-12 12:40 | PDOC.HOSPP ---
- Subjective Encounter Date: 05/12/20 Encounter Time: 08:00 Subjective: Patient seen and examined bedside today, this morning patient had a black tarry stool, his blood pressure has been recovered, he is alert and oriented, he does not have any epigastric abdominal pain, she denies any chest pain or dizziness. - Objective Vital Signs & Weight: Vital Signs (12 hours) Temp Pulse Resp BP Pulse Ox 05/12/20 10:43 99.1 F 62 24 H 108/61 100 Result Diagrams: 05/12/20 12:05 05/12/20 02:37 Radiology Reviewed by me: Yes EKG Reviewed by me: Yes Hospitalist ROS - Review of Systems Eyes: denies: pain, vision change, conjunctivae inflammation, eyelid inflammation, redness, other ENT: denies: ear pain, ear discharge, nose pain, nose discharge, nose congestion, mouth pain, mouth swelling, throat pain, throat swelling, other Respiratory: denies: cough, dry, shortness of breath, hemoptysis, SOB with excertion, pleuritic pain, sputum, wheezing, other Cardiovascular: denies: chest pain, palpitations, orthopnea, paroxysmal noc. dyspnea, edema, light headedness, other Gastrointestinal: reports: melena. denies: nausea, vomiting, abdominal pain, diarrhea, constipation, hematochezia, other Genitourinary: denies: dysuria, frequency, incontinence, hematuria, retention, other Musculoskeletal: denies: neck pain, shoulder pain, arm pain, back pain, hand pain, leg pain, foot pain, other - Medication Medications: Active Medications Generic Name Dose Route Start Last Admin Trade Name Freq PRN Reason Stop Dose Admin Ceftriaxone Sodium 1 gm/ 100 mls @ 200 mls/hr 05/12/20 06:45 05/12/20 10:39 Sodium Chloride IVPB 100 mls Q24HR VIRGEN Administration Potassium Chloride/Sodium Chloride 1,000 mls @ 100 mls/hr 05/12/20 08:00 05/12/20 11:19 1/2 Ns W/Kcl 20 Meq IV 1,000 mls .Q10H VIRGEN Administration Pantoprazole Sodium 40 mg 05/12/20 09:00 05/12/20 10:39 Pantoprazole 40 Mg Vial IVP 40 mg BID VIRGEN Administration - Exam General Appearance: NAD, awake alert Eye: PERRL, anicteric sclera ENT: normocephalic atraumatic, no oropharyngeal lesions Neck: supple, symmetric, no JVD, no thyromegaly Heart: RRR, no murmur, no gallops, no rubs Respiratory: CTAB, no wheezes, no rales, no ronchi Gastrointestinal: soft, non-tender, non-distended, normal bowel sounds Extremities: no cyanosis, no clubbing, no edema Skin: normal turgor, no lesions Neurological: no focal deficits Musculoskeletal: normal tone, normal strength Psychiatric: normal affect, normal behavior Hosp A/P (1) Upper GI bleeding Code(s): K92.2 - GASTROINTESTINAL HEMORRHAGE, UNSPECIFIED Status: Acute (2) Hypotension Status: Acute Qualifiers: Hypotension type: orthostatic hypotension Qualified Code(s): I95.1 - Orthostatic hypotension (3) Type 2 myocardial infarction Code(s): I21.A1 - MYOCARDIAL INFARCTION TYPE 2 Status: Acute (4) Anemia due to acute blood loss Code(s): D62 - ACUTE POSTHEMORRHAGIC ANEMIA Status: Acute (5) HTN (hypertension) Code(s): I10 - ESSENTIAL (PRIMARY) HYPERTENSION Status: Chronic (6) BPH (benign prostatic hyperplasia) Code(s): N40.0 - BENIGN PROSTATIC HYPERPLASIA WITHOUT LOWER URINRY TRACT SYMP Status: Chronic (7) CAD (coronary artery disease) Code(s): I25.10 - ATHSCL HEART DISEASE OF [place] CORONARY ARTERY W/O ANG PCTRS Status: Chronic Qualifiers: Coronary Disease-Associated Artery/Lesion type: [place] artery [place] vs. transplanted heart: [place] heart - Plan old records reviewed/req Likely upper GI bleed related with his aspirin and Plavix use, discussed with the gastroenterology, plan for endoscopy either today or tomorrow Continue IV fluid Continue IV Protonix Patient is currently kept on octreotide drip and empiric Rocephin, but less likely to be cirrhosis, will discontinue after endoscopic evaluation Patient's blood pressure has been improved, will downgrade to telemetry floor Medication reviewed and continue provide symptomatic and supportive care Hold on blood pressure medication, will closely monitor on telemetry floor.
[2020-05-12 17:17] VITALS: BMI 33.5
[2020-05-12 18:22] LABS: Hemoglobin 9.7 g/dL (14.0-18.0)
[2020-05-12 19:40] LABS: SARS-CoV-2 NAA Rapid Test DETECTED (NotDetected)
--- NOTE | 2020-05-12 22:05 | CON ---
DATE OF CONSULTATION: 05/12/2020 REASON FOR CONSULTATION: Hematemesis. HISTORY OF PRESENT ILLNESS: Mr. Sukhjinder Segal is a very pleasant 65-year-old male, brought to the ER this morning because of one episode of hematemesis. The patient had no abdominal pain. He felt his stomach started throwing up, had fairly large amount of blood. He was brought to the ER by the EMS and seen by the ER MD. He was hypotensive during admission in the ER, but after IV infusion, blood pressure peaked up. The patient since admission has had no more nausea, vomiting. Blood count is stable. On arrival to the ER, CBC done showed hemoglobin to be around 9.7 and stable at 9 and 10.3 and 9.7 over the last 4 repeat CBCs. The patient still in the ER hold as no bed available. Unfortunately could not emerge an EGD because the OR has been booked up solid and I could not really get him scheduled today. Also other reason I could not do his EGD today because he was on Plavix until yesterday. The patient also tells me he has had positive COVID-19 testing as an outpatient. He has some low-grade fever and mild coughing and was told he is COVID-19 positive. A repeat COVID-19 testing done also came back positive today. The patient has had no bowel movement today. The patient denies any prior history of peptic ulcer. MEDICAL ILLNESSES: 1. Coronary artery disease, status post stent placement done by Dr. Mark Monge in June of 2019. He is on Plavix since that time. He is on aspirin. 2. Hypertension. 3. History to urethral stricture. 4. Benign prostatic hypertrophy. No history of diabetes. No history of any asthma. SURGERIES: 1. Bilateral knee replacement. 2. Hernia repair. 3. He has had some urological procedure done by Dr. Mujica. He also has history of kidney stones from before. FAMILY HISTORY: History of heart disease and hypertension. No family history of any cancer. MEDICATIONS: Reviewed, which include calcium carbonate, hydralazine, loratadine, pantoprazole, zolpidem, clopidogrel, and aspirin. ALLERGIES: NONE. SOCIAL HISTORY: . No history of smoking or any alcohol abuse. REVIEW OF SYSTEMS: 10-point system review: CONSTITUTIONAL: No history any weight loss, has had low-grade fever. No history of any change in exercise tolerance. He had no chronic headache, no dizziness. EYES: No diplopia. No impaired vision. EARS: No hearing loss. THROAT: No sore throat or dysphagia. LUNGS: No chronic coughing. He has mild coughing recently, but low-grade fever. No dyspnea. No hemoptysis. CARDIOVASCULAR SYSTEM: No chest pain. No palpitation. No dyspnea, orthopnea, PND. GASTROINTESTINAL: No abdominal pain. Has history of nausea and vomiting with hematemesis last night. GENITOURINARY: Has history of stricture and sometimes difficulty urinating. No hematuria. MUSCULOSKELETAL: No relevant. NEUROENDOCRINE: No relevant. HEMATOLOGICAL: No relevant. PHYSICAL EXAMINATION: GENERAL: Appears very comfortable. He is awake, alert, and communicative. He is in no distress. VITAL SIGNS: He is afebrile. Pulse is 76, blood pressure 133/87. HEENT: Conjunctivae clear. NECK: Supple. CARDIOVASCULAR SYSTEM: Normal heart sounds. LUNGS: Clear to auscultation. ABDOMEN: Soft. Abdomen is nondistended. Abdomen is nontender. No organomegaly. No masses. EXTREMITIES: Reveal no edema. LABORATORY DATA: Shows admitting CBC; WBC 4700, hemoglobin 9.7, hematocrit 29.3, MCV 82, platelet count 179,000, polymorphs 76, lymphocytes 18. Last hemoglobin is same as before at 9.7, hematocrit 28.8 10.3 and 32.3. Chem-7, BUN is high from GI bleeding which is 38. Lytes are normal. CO2 is 17. Liver function test, bilirubin 0.3, AST is 18, ALT 13, alkaline phosphatase 72, albumin 3.4. CLINICAL IMPRESSION: 1. Acute upper gastrointestinal bleeding, most likely bleeding ulcer, possibly vascular ectasia. His hemoglobin is stable and blood count is stable over the last 24 hours. 2. Elevation of BUN, most likely from the GI bleeding. 3. Hypertension. 4. Coronary artery disease, status post stent placement. 5. Prostatic hypertrophy. 6. Hernia repair. 7. History of kidney stone. 8. Bilateral hip replacements. RECOMMENDATIONS: 1. Full-liquid diet tonight. 2. N.p.o. after midnight. We will plan for EGD tomorrow. This will be done either by me or Dr. Jesus Alejo, who is his primary knitting machine tender. Job ID: [id number]
[2020-05-12 23:45] LABS: Hemoglobin 8.9 g/dL (14.0-18.0)
[2020-05-13] MEDS: Pantoprazole 40 MG VIAL IVP SCH ×3 (00:42→20:26)
[2020-05-13] MEDS: 1/2 NS w/KCL 20 mEq 1,000 ML IV SCH ×3 (00:42→12:28)
[2020-05-13 05:15] LABS: #Lymphocytes 0.8 thou/uL (1.20-3.40); #Monocytes 0.2 thou/uL (0.11-0.59); #Neutrophils 2.8 thou/uL (1.40-6.50); %Basophils 0.2 % (0.0-1.0); %Eosinophils 0.7 % (0.0-10.0); %Lymphocytes 20.7 % (21.0-51.0); %Monocytes 6.3 % (0.0-10.0); %Neutrophils 72.1 % (42.0-75.0); Hemoglobin 8.8 g/dL (14.0-18.0); Mean Corpuscular HGB CONC 33.4 g/dL (32.0-36.0); Mean Corpuscular Hemoglobin 28.1 pg (27.0-31.0); Mean Corpuscular Volume 84.3 fL (78.0-98.0); Mean Platelet Volume 9.9 fL (7.4-10.4); Platelet Count 143 thou/uL (130-400); RBC Distribution Width 13.5 % (11.5-14.5); Red Blood Cell (RBC) Count 3.14 mill/uL (4.70-6.10); White Blood Cell (WBC) Count 3.8 thou/uL (4.8-10.8)
[2020-05-13 05:36] LABS: Phosphorus 2.2 mg/dL (2.3-4.7)
[2020-05-13 05:39] LABS: ALT (SGPT) 12 U/L (8-55); AST (SGOT) 17 U/L (5-34); Alkaline Phosphatase 61 U/L (40-110); Anion Gap 13 mmol/L (10-20); BUN (Urea Nitrogen) 28 mg/dL (8.4-25.7); Bilirubin, Total 0.3 mg/dL (0.2-1.2); Calc. Creatinine Clearance 116 mL/min (70-130); Calcium 7.7 mg/dL (7.8-10.44); Carbon Dioxide 17 mmol/L (23-31); Chloride 112 mmol/L (98-107); Estimated GFR-MDRD 80; Globulin 2.7 g/dL (2.4-3.5); Glucose 135 mg/dL (80-115); Magnesium 1.7 mg/dL (1.6-2.6); Protein, Total 5.7 g/dL (5.8-8.1); Sodium 138 mmol/L (136-145)
[2020-05-13] MEDS: cefTRIAXone\\ROCEPHIN 1 GM in Sodium Chloride 0.9% 100 ML IVPB SCH (07:13)
[2020-05-13] MEDS ORDERED: Benzonatate 100 MG CAP PO PRN (08:09)
[2020-05-13] MEDS ORDERED: Loperamide HCl 2 MG CAP PO PRN (08:09)
[2020-05-13] MEDS ORDERED: Albuterol Sulfate 2.5 mg/3 ml Neb NEB PRN (08:12)
[2020-05-13] MEDS ORDERED: Sodium Phosphate 15 MMOL in Sodium Chloride 0.9% 250 ML 250 ML IVPB SCH (08:15)
[2020-05-13] MEDS ORDERED: Escitalopram Oxalate 10 mg Tablet PO SCH (09:00)
[2020-05-13] MEDS ORDERED: Non-Formulary Item 1 EACH (Mirabegron [Myrbetriq] 50 MG Tab.Er.24h) PO SCH (09:00)
--- NOTE | 2020-05-13 09:11 | RAD ---
CHEST 1 VIEW: Date: 05/13/2020 HISTORY: COVID pneumonia. COMPARISON: 12/23/2019 study. FINDINGS: Heart size is borderline. There are some atherosclerotic changes of the aorta. Chronic appearing lung changes are seen without definitive focal infiltrate. IMPRESSION: Chronic appearing lung change. POS: AH
[2020-05-13] MEDS: Ondansetron PF 4 MG/2 ML Vial IVP PRN ×2 (10:38→16:14)
[2020-05-13] MEDS ORDERED: PROPOFOL 200 MG/20 ML VIAL ONE (10:50)
[2020-05-13] MEDS ORDERED: Lidocaine 1% PF 5 ML VIAL ONE (10:50)
[2020-05-13] MEDS ORDERED: Succinylcholine 200 MG/10 ml SYRINGE FS ONE (10:50)
[2020-05-13] MEDS ORDERED: Ondansetron PF 4 MG/2 ML Vial ONE (10:50)
[2020-05-13] MEDS ORDERED: Ketamine 50 MG/ML (10ML VIAL) ONE (11:16)
[2020-05-13] MEDS: Escitalopram Oxalate 10 mg Tablet PO SCH (11:47)
[2020-05-13] MEDS: Ascorbic Acid 500 mg Chewable Tablet PO SCH (11:47)
[2020-05-13] MEDS: Zinc Sulfate 220 MG CAP PO SCH (11:48)
--- NOTE | 2020-05-13 12:24 | OP ---
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 PROCEDURE PERFORMED: Esophagogastroduodenoscopy, diagnostic. INDICATIONS: 1. Hematemesis. 2. Melena. 3. Acute blood loss anemia. 4. COVID pneumonia. MEDICATIONS: See Anesthesia record. FINDINGS: After discussion of the risks, benefits, and alternatives of the procedure, informed consent was obtained and verified. Pre-endoscopic cardiopulmonary examination was satisfactory. Time-out was performed before sedation was achieved. Sedation was achieved with Anesthesia assistance in the endoscopy unit with the patient under general anesthesia. Enhanced airborne precautions were utilized throughout the entire case by all members of the team in the room. The patient was placed in left lateral decubitus position. A Pentax adult upper endoscope was placed into the oropharynx and passed through the cricopharyngeus under direct visualization. The esophageal mucosa appeared normal throughout with a normal-appearing Z-line. There was no evidence of any esophageal varices. The endoscope was advanced into the stomach. Forward and retroflexed views of the entire gastric mucosa were obtained. There was a moderate amount of bilious fluid suctioned out of the gastric fundus. Good examination of the entire gastric mucosa was obtained with the endoscope in forward and retroflexed views. The gastric mucosa appeared normal in the fundus and the body. In the gastric antrum, there was some mild erythema and friability, but no evidence of any erosions or ulcerations. Examination of the GE junction did not demonstrate any tear. There were no other bleeding lesions visualized. The endoscope was passed through the pylorus and into the first, second, third portions of the duodenum, which also appeared normal. There was no evidence of any old blood, active bleeding or bleeding lesions. The upper endoscope was completely withdrawn and the patient allowed to recover. The patient tolerated the procedure well. There were no immediate postprocedure complications. IMPRESSION: 1. Mild antral gastritis, with no evidence of any bleeding lesion. 2. Otherwise normal EGD. RECOMMENDATION: 1. Octreotide can be discontinued. 2. Would continue the pantoprazole, but can decrease this to 40 mg once daily. 3. Advance diet as tolerated. 4. Monitor H and H and further signs of active bleeding. If the patient appears to have ongoing hemorrhage over the next day, would need to consider bowel prep for colonoscopy. Given that he presented with hematemesis, his COVID positive status, we will hold off on any bowel preparation for colonoscopy at this time. Job ID: [id number]
--- NOTE | 2020-05-13 12:46 | PDOC.HOSPP ---
- Subjective Encounter Date: 05/13/20 Encounter Time: 10:00 Subjective: Patient seen and examined. No new complaints. No overnight events - Objective Vital Signs & Weight: Vital Signs (12 hours) Temp Pulse Resp BP Pulse Ox 05/13/20 08:00 99.1 F 80 22 H 109/71 97 05/13/20 04:00 99.4 F 92 18 119/57 L 97 05/13/20 00:50 66 22 H 117/56 L 98 Weight Weight 233 lb 7.512 oz I&O: 05/12/20 05/13/20 05/14/20 06:59 06:59 06:59 Intake Total 1020 Output Total 800 Balance 220 Result Diagrams: 05/13/20 04:38 05/13/20 04:38 Hospitalist ROS - Review of Systems ENT: denies: ear pain, ear discharge, nose pain, nose discharge, nose congestion, mouth pain, mouth swelling, throat pain, throat swelling, other Respiratory: denies: cough, dry, shortness of breath, hemoptysis, SOB with excertion, pleuritic pain, sputum, wheezing, other Cardiovascular: denies: chest pain, palpitations, orthopnea, paroxysmal noc. dyspnea, edema, light headedness, other Gastrointestinal: denies: nausea, vomiting, abdominal pain, diarrhea, constipation, melena, hematochezia, other Genitourinary: denies: dysuria, frequency, incontinence, hematuria, retention, other Musculoskeletal: denies: neck pain, shoulder pain, arm pain, back pain, hand pain, leg pain, foot pain, other - Medication Medications: Active Medications Generic Name Dose Route Start Last Admin Trade Name [place] PRN Reason Stop Dose Admin Ascorbic Acid 1,000 mg 05/13/20 09:00 05/13/20 11:47 Ascorbic Acid 500 Mg Chewable Tablet PO Not Given DAILY VIRGEN Escitalopram Oxalate 10 mg 05/13/20 09:00 05/13/20 11:47 Escitalopram Oxalate 10 Mg Tablet PO Not Given DAILY VIRGEN Ceftriaxone Sodium 1 gm/ 100 mls @ 200 mls/hr 05/12/20 06:45 05/13/20 07:13 Sodium Chloride IVPB 100 mls Q24HR VIRGEN Administration Potassium Chloride/Sodium Chloride 1,000 mls @ 70 mls/hr 05/13/20 08:10 05/13/20 12:28 1/2 Ns W/Kcl 20 Meq IV 1,000 mls .[id number] VIRGEN Administration Sodium Phosphate 15 mmol/ 255 mls @ 42.5 mls/hr 05/13/20 08:15 05/13/20 09:25 Sodium Chloride IVPB 05/13/20 16:00 255 mls NOW VIRGEN Administration Mirabegron 50 mg 05/13/20 09:00 05/13/20 11:47 Mirabegron Er 25 Mg Tab PO Not Given DAILY VIRGEN Ondansetron HCl 4 mg 05/12/20 05:11 05/13/20 10:38 Ondansetron Pf 4 Mg/2 Ml Vial IVP 4 mg Q6H PRN Administration Nausea/Vomiting Pantoprazole Sodium 40 mg 05/12/20 09:00 05/13/20 08:36 Pantoprazole 40 Mg Vial IVP 40 mg BID VIRGEN Administration Zinc Sulfate 220 mg 05/13/20 09:00 05/13/20 11:48 Zinc Sulfate 220 Mg Cap PO Not Given DAILY VIRGEN - Exam General Appearance: NAD, awake alert Eye: PERRL, anicteric sclera ENT: normocephalic atraumatic, no oropharyngeal lesions Neck: supple, symmetric, no JVD Heart: RRR, no murmur, no gallops, no rubs Respiratory: no wheezes, no rales, no ronchi Gastrointestinal: soft, non-tender, non-distended, normal bowel sounds Extremities: no cyanosis, no clubbing, no edema Skin: normal turgor, no lesions Neurological: no focal deficits Musculoskeletal: normal tone, normal strength Psychiatric: normal affect, normal behavior Hosp A/P (1) Upper GI bleeding Code(s): K92.2 - GASTROINTESTINAL HEMORRHAGE, UNSPECIFIED Status: Acute (2) Hypotension Status: Acute Qualifiers: Hypotension type: orthostatic hypotension Qualified Code(s): I95.1 - Ortho static hypotension (3) Type 2 myocardial infarction Code(s): I21.A1 - MYOCARDIAL INFARCTION TYPE 2 Status: Acute (4) Anemia due to acute blood loss Code(s): D62 - ACUTE POSTHEMORRHAGIC ANEMIA Status: Acute (5) HTN (hypertension) Code(s): I10 - ESSENTIAL (PRIMARY) HYPERTENSION Status: Chronic (6) BPH (benign prostatic hyperplasia) Code(s): N40.0 - BENIGN PROSTATIC HYPERPLASIA WITHOUT LOWER URINRY TRACT SYMP Status: Chronic (7) CAD (coronary artery disease) Code(s): I25.10 - ATHSCL HEART DISEASE OF [place] CORONARY ARTERY W/O ANG PCTRS Status: Chronic Qualifiers: Coronary Disease-Associated Artery/Lesion type: [place] artery [place] vs. transplanted heart: [place] heart (8) COVID-19 Code(s): U07.1 - COVID-19 Status: Acute - Plan old records reviewed/req Patient will be plan for EGD today Medication reviewed and continue for symptomatic and supportive care Add vitamin supplementation Continue isolation We will repeat labs tomorrow Continue Protonix Discontinue octreotide drip
[2020-05-13] MEDS ORDERED: Tamsulosin HCl 0.4 MG CAP PO SCH ×2 (21:00)
[2020-05-13] MEDS ORDERED: Promethazine HCl 25 MG in Sodium Chloride 0.9% 50 ML IVPB SCH (21:15)
[2020-05-14] MEDS: 1/2 NS w/KCL 20 mEq 1,000 ML IV SCH (03:16)
[2020-05-14 05:14] LABS: #Eosinphils 0.1 thou/uL (0.0-0.7); #Lymphocytes 0.9 thou/uL (1.20-3.40); #Monocytes 0.3 thou/uL (0.11-0.59); #Neutrophils 2.9 thou/uL (1.40-6.50); %Basophils 0.4 % (0.0-1.0); %Monocytes 6.7 % (0.0-10.0); Hemoglobin 8.2 g/dL (14.0-18.0); Mean Corpuscular HGB CONC 33.4 g/dL (32.0-36.0); Mean Corpuscular Hemoglobin 28.2 pg (27.0-31.0); Mean Corpuscular Volume 84.4 fL (78.0-98.0); Mean Platelet Volume 9.2 fL (7.4-10.4); Platelet Count 155 thou/uL (130-400); RBC Distribution Width 13.8 % (11.5-14.5); White Blood Cell (WBC) Count 4.1 thou/uL (4.8-10.8)
[2020-05-14 05:42] LABS: ALT (SGPT) 11 U/L (8-55); AST (SGOT) 18 U/L (5-34); Albumin 3.1 g/dL (3.4-4.8); Alkaline Phosphatase 68 U/L (40-110); Anion Gap 12 mmol/L (10-20); BUN (Urea Nitrogen) 17 mg/dL (8.4-25.7); Bilirubin, Total 0.3 mg/dL (0.2-1.2); CRP (Inflammatory) 3.06 mg/dL (= or < 0.5); Calc. Creatinine Clearance 99 mL/min (70-130); Calcium 7.8 mg/dL (7.8-10.44); Carbon Dioxide 22 mmol/L (23-31); Chloride 109 mmol/L (98-107); Estimated GFR-MDRD 73; Globulin 2.8 g/dL (2.4-3.5); Glucose 124 mg/dL (80-115); Phosphorus 2.8 mg/dL (2.3-4.7); Potassium 3.6 mmol/L (3.5-5.1); Protein, Total 5.9 g/dL (5.8-8.1); Sodium 139 mmol/L (136-145)
[2020-05-14] MEDS: cefTRIAXone\\ROCEPHIN 1 GM in Sodium Chloride 0.9% 100 ML IVPB SCH (05:54)
[2020-05-14] MEDS: Zinc Sulfate 220 MG CAP PO SCH (08:01)
[2020-05-14] MEDS: Escitalopram Oxalate 10 mg Tablet PO SCH (08:01)
[2020-05-14] MEDS: Ascorbic Acid 500 mg Chewable Tablet PO SCH (08:01)
[2020-05-14] MEDS: Pantoprazole 40 MG VIAL IVP SCH (08:01)
--- NOTE | 2020-05-14 11:00 | PDOC.DS.DS ---
Provider - Provider Date of Admission: 05/12/20 04:34 Date of Discharge: 05/14/20 Admitting Provider: Surendra Shah Consultations: Gastroentrology Primary Care Physician: Unknown Course - Hospital Course Hospital Course: 65-year-old male who with a past medical history of hypertension, chronic coronary artery disease who was brought to emergency room for hematemesis, when he arrived to emergency room he was hypotensive, he was tachycardic, he required 2 units of blood transfusion in the emergency room. After IV fluid and 2 units of blood transfusion his hemoglobin remained stable and his vitals were also improved. Patient had leukopenia, preprocedure patient had COVID-19 test that came back positive, patient symptoms were not suggestive of any Covid infection, patient underwent upper endoscopy which showed mild antral gastritis without any obvious signs of bleeding. Initially this patient was started on octreotide drip which was discontinued after endoscopy, patient was also given IV Protonix while in hospital with change to Protonix daily, we held aspirin and Plavix while in hospital, we have discussed with the patient to resume after couple of days, patient is also advised to follow-up with primary care physician and gastroenterology for for further evaluation. If his hemoglobin drops then he may need outpatient basis colonoscopy. Regarding his Covid status we have prescribed symptomatic treatment, self quarantine measures discussed with the patient, plan of care discussed with the patient's and patient, patient will continue all his previous medication, we have advised him to monitor blood pressure and hold blood pressure medication for systolic blood pressure less than 120. All necessary discharge instructions given to patient and and answered all their questions. Resuscitation Status: 05/12/20 05:11 Resuscitation Status Routine Resuscitation Status: FULL: Full Resuscitation - Labs Lab Results: 05/14/20 04:38 05/14/20 04:38 Abnormal Lab Results - Last 48 hrs 05/12/20 02:36: Crossmatch See Detail 05/12/20 12:05: Hgb 10.3 L, Hct 32.3 L 05/12/20 18:06: Hgb 9.7 L, Hct 28.8 L 05/12/20 18:21: SARS-CoV-2 Rap RNA(RT-PCR) DETECTED A* 05/12/20 23:31: Hgb 8.9 L, Hct 26.8 L 05/13/20 04:38: Chloride 112 H, Carbon Dioxide 17 L, BUN 28 H, Calcium 7.7 L, Serum Total Protein 5.7 L, Albumin 3.0 L, Albumin/Globulin Ratio 1.1 L 05/13/20 04:38: Phosphorus 2.2 L 05/13/20 04:38: WBC 3.8 L, RBC 3.14 L, Hgb 8.8 L, Hct 26.5 L, Lymphocytes % 20.7 L, Lymphocytes # 0.8 L 05/14/20 04:38: Chloride 109 H, Carbon Dioxide 22 L, C-Reactive Protein 3.06 H, Albumin 3.1 L, Albumin/Globulin Ratio 1.1 L 05/14/20 04:38: WBC 4.1 L, RBC 2.90 L, Hgb 8.2 L, Hct 24.5 L, Lymphocytes # 0.9 L 05/14/20 04:38: D-Dimer 1.96 H Microbiology - Entire Visit 05/12/20 10:45 Stool Stool Occult Blood (EMIR) - Final - Diagnostic Interpretation Chest x-ray Additional comments: No acute cardiopulmonary process - Physical Exam Vitals: Vital Signs (12 hours) Temp Pulse Resp BP Pulse Ox 05/14/20 03:20 99.1 F 63 24 H 129/62 97 05/13/20 23:44 99.5 F 68 18 133/63 98 Weight Weight 217 lb 8 oz Physical Exam: The patient was seen and examined on the day of discharge. General patient is currently alert and awake no acute distress Head normocephalic atraumatic Neck supple no JVD no meningeal signs of irritation Lungs clear to auscultation without any rhonchi or rales Cardiac S1-S2 regular, no murmur no gallop no rub Abdomen soft, bowel sounds present, nontender nondistended no organomegaly no mass Extremities no edema Neurologic nonfocal examination Problem - Problem (1) Upper GI bleeding Code(s): K92.2 - GASTROINTESTINAL HEMORRHAGE, UNSPECIFIED Status: Acute (2) Hypotension Status: Acute Qualifiers: Hypotension type: orthostatic hypotension Qualified Code(s): I95.1 - Orthostatic hypotension (3) Type 2 myocardial infarction Code(s): I21.A1 - MYOCARDIAL INFARCTION TYPE 2 Status: Acute (4) Anemia due to acute blood loss Code(s): D62 - ACUTE POSTHEMORRHAGIC ANEMIA Status: Acute (5) HTN (hypertension) Code(s): I10 - ESSENTIAL (PRIMARY) HYPERTENSION Status: Chronic (6) BPH (benign prostatic hyperplasia) Code(s): N40.0 - BENIGN PROSTATIC HYPERPLASIA WITHOUT LOWER URINRY TRACT SYMP Status: Chronic (7) CAD (coronary artery disease) Code(s): I25.10 - ATHSCL HEART DISEASE OF [place] CORONARY ARTERY W/O ANG PCTRS Status: Chronic Qualifiers: Coronary Disease-Associated Artery/Lesion type: [place] artery [place] vs. transplanted heart: [place] heart (8) COVID-19 Code(s): U07.1 - COVID-19 Status: Acute Plan - Discharge Medications Prescriptions: Pantoprazole [Protonix] 40 mg PO DAILY #30 tab Benzonatate [Tessalon] 100 mg PO Q6H PRN #30 cap PRN Reason: Cough Ascorbic Acid [Vitamin C] 1,000 mg PO DAILY #14 tab Ondansetron [Zofran ODT] 4 mg SL Q6H PRN #15 tab PRN Reason: Nausea/Vomiting Home Medications: Medication Instructions Recorded Confirmed Type Aspirin 81 mg PO DAILY 12/25/19 05/12/20 History Cetirizine HCl [Zyrtec] 10 mg PO DAILY 12/25/19 05/12/20 History Cholecalciferol (Vitamin D3) 5,000 unit PO DAILY 12/25/19 05/12/20 History [Vitamin D] Clopidogrel Bisulfate [Plavix] 75 mg PO DAILY 12/25/19 05/12/20 History Lisinopril [Zestril] 40 mg PO DAILY 12/25/19 05/12/20 History Mirabegron [Myrbetriq] 50 mg PO DAILY 12/25/19 05/12/20 History Tamsulosin HCl [Flomax] 2 cap PO HS 12/25/19 05/12/20 History Escitalopram Oxalate [Lexapro] 1 tab PO DAILY 05/12/20 05/12/20 History Ascorbic Acid [Vitamin C] 1,000 mg PO DAILY #14 tab 05/14/20 Rx Benzonatate [Tessalon] 100 mg PO Q6H PRN #30 cap 05/14/20 Rx Ondansetron [Zofran ODT] 4 mg SL Q6H PRN #15 tab 05/14/20 Rx Pantoprazole [Protonix] 40 mg PO DAILY #30 tab 05/14/20 Rx Allergies: No Known Allergies Allergy (Verified 05/12/20 22:52) - Discharge Instructions Activity:: Activity as Tolerated Nourishment:: Heart Healthy Diet Therapies:: Not Applicable Equipment/Supplies:: Not Applicable IV Therapy:: Not Applicable - Follow up Plan Referrals: Unknown,Unknown [Primary Care Provider] - Disposition: HOME Quality - Care Measures CORE MEASURES:: N/A
[2020-05-14 15:36] VITALS: BP 135/67; TEMP 99.6
== END 2020-05-14 12:34 | disposition home or self-care (01) | DRG 377 ==
LOC: ERS 02:24 → ERHOLD 04:34 → 2SW 22:11
PROVIDERS: ADMIT Internal Medicine; ATTEND Internal Medicine
PROC: 8E0ZXY6 Isolation (ICD-10-PCS; 2020-05-12)
PROC: 30233N1 Transfusion of Nonautologous Red Blood Cells into Peripheral Vein, Percutaneous Approach (ICD-10-PCS; 2020-05-12)
PROC: 06HY33Z Insertion of Infusion Device into Lower Vein, Percutaneous Approach (ICD-10-PCS; 2020-05-12)
PROC: 0DJ08ZZ Inspection of Upper Intestinal Tract, Via Natural or Artificial Opening Endoscopic (ICD-10-PCS; principal; 2020-05-13)
DX: K29.71 Gastritis, unspecified, with bleeding (principal); U07.1 COVID-19; I21.A1 Myocardial infarction type 2; D62 Acute posthemorrhagic anemia; I25.10 Atherosclerotic heart disease of native coronary artery without angina pectoris; I10 Essential (primary) hypertension; N40.0 Benign prostatic hyperplasia without lower urinary tract symptoms; Z96.653 Presence of artificial knee joint, bilateral; Z96.643 Presence of artificial hip joint, bilateral; I95.1 Orthostatic hypotension; Z95.5 Presence of coronary angioplasty implant and graft; Z79.899 Other long term (current) drug therapy; Z79.82 Long term (current) use of aspirin; Z79.02 Long term (current) use of antithrombotics/antiplatelets; Z87.442 Personal history of urinary calculi
CPT/HCPCS: 36415; 36416; 36430; 36556; 71045; 80053; 82274; 82553; 82728; 83615; 83735; 84100; 84484; 85025; 85379; 85610; 85730; 86140; 86850; 86900; 86901; 93005; 96374; 96375; 96376; C9113; J0696; J2354; J2405; J2550; J2704; J3480; J3490; J7050; P9016; U0002

== ENCOUNTER 2020-06-03 12:39 | Inpatient (IN) | payer MEDICARE ==
[~2020-06-03 12:39] MED LIST changes: -Heparin 1,000 UNITS/ML VIAL ONE; +Iopamidol-370 76% 500 ML 1 ML ONE
[2020-06-03 13:46] LABS: #Eosinphils 0.2 thou/uL (0.0-0.7); #Monocytes 0.3 thou/uL (0.11-0.59); #Neutrophils 2.2 thou/uL (1.40-6.50); %Basophils 1.3 % (0.0-1.0); %Eosinophils 4.2 % (0.0-10.0); %Lymphocytes 26.5 % (21.0-51.0); %Monocytes 8.4 % (0.0-10.0); %Neutrophils 59.6 % (42.0-75.0); Hemoglobin 8.5 g/dL (14.0-18.0); Mean Corpuscular HGB CONC 32.6 g/dL (32.0-36.0); Mean Corpuscular Hemoglobin 26.6 pg (27.0-31.0); Mean Corpuscular Volume 81.6 fL (78.0-98.0); Mean Platelet Volume 8.8 fL (7.4-10.4); Platelet Count 196 thou/uL (130-400); RBC Distribution Width 14.4 % (11.5-14.5); Red Blood Cell (RBC) Count 3.18 mill/uL (4.70-6.10); White Blood Cell (WBC) Count 3.7 thou/uL (4.8-10.8)
[2020-06-03 14:05] LABS: ALT (SGPT) 17 U/L (8-55); AST (SGOT) 16 U/L (5-34); Albumin 3.6 g/dL (3.4-4.8); Alkaline Phosphatase 74 U/L (40-110); Anion Gap 14 mmol/L (10-20); BUN (Urea Nitrogen) 13 mg/dL (8.4-25.7); Bilirubin, Total 0.3 mg/dL (0.2-1.2); Calc. Creatinine Clearance 0 mL/min (70-130); Calcium 8.3 mg/dL (7.8-10.44); Carbon Dioxide 21 mmol/L (23-31); Chloride 112 mmol/L (98-107); Globulin 3.4 g/dL (2.4-3.5); Glucose 105 mg/dL (80-115); Potassium 3.3 mmol/L (3.5-5.1); Sodium 144 mmol/L (136-145)
--- NOTE | 2020-06-03 14:09 | RAD ---
Chest one view HISTORY: Chest pain. COMPARISON: 05/13/2020. FINDINGS: Cardiac silhouette is magnified by projection. Pulmonary vasculature now more engorged than on the prior study with interval increase in widespread reticulonodular interstitial prominence. Mild bilateral perihilar infiltrate. Mediastinum is midline. No lobar consolidation or evidence of pneumothorax. IMPRESSION : Interval increase in radiographic degree of pulmonary vascular congestion.
[2020-06-03 14:27] LABS: CKMB 0.8 ng/mL (0-6.6)
[2020-06-03] MEDS ORDERED: Potassium Chloride 20 MEQ TAB ONE ×2 (14:53→21:42)
[2020-06-03] MEDS ORDERED: Furosemide 40 MG/4 ML VIAL ONE (14:53)
[2020-06-03] MEDS ORDERED: Magnesium 2 GM/50 ML BAG (IN WATER) ONE (15:03)
--- NOTE | 2020-06-03 15:56 | CT ---
CTA Angio Chest W WO Con 06/03/2020 3:37 PM Indication: History of recent GI bleed with shortness of breath and chest discomfort Technique: Multiple CTA images were obtained of the thorax with IV contrast. 3-D rendering: MIP nikole nstructed images were created and reviewed. Comparison: Prior CT of the thorax dated August 04, 2017 Findings: Pulmonary arteries: Respiratory motion artifact heavily degrades image quality of the segmental bran ches of both lower lobes. No definite central pulmonary embolus is evident. Heart and Aorta: There are coronary artery calcifications. There are annular calcifications seen jodi r the aortic valve. Mediastinum:Normal appearing. No enlarged lymph nodes. Lungs:There is bibasilar atelectasis. There is patchy groundglass airspace opacity within the central aspect of the left upper lobe. There is a small subpleural pulmonary nodule involving the lateral right middle lobe. There is patchy groundglass opacity within the posterior aspect of the right upper lobe. Pleural space: There are small bilateral pleural effusions. Upper Abdomen: There is a small hiatal hernia. Osseous Structures: There is a mild wedge compression fracture of T5 that is stable Soft tissues:No abnormality. Other findings:None. Impression: 1. Limitations to the examination is above. No definite central pulmonary embolus is evident. 2. Cardiomegaly with mild bilateral pleural effusion may reflect a component of CHF. 3. Patchy areas of groundglass airspace opacity within both upper lobes is nonspecific and may reflec t airspace edema or areas of infectious or inflammatory pneumonitis. 4. Chronic T5 wedge compression abnormality.
[2020-06-03] MEDS ORDERED: Ondansetron ODT 4 MG TAB PO PRN (18:00)
[2020-06-03] MEDS ORDERED: Acetaminophen 325 MG TAB PO PRN (18:00)
[2020-06-03] MEDS ORDERED: Guaifenesin DM 100-10/5 ML UDCUP PO PRN (18:00)
[2020-06-03] MEDS ORDERED: Senokot S 8.6-50 MG TAB PO PRN (18:00)
[2020-06-03] MEDS ORDERED: Acetaminophen 650 MG Suppository PR PRN (18:00)
[2020-06-03] MEDS ORDERED: Ondansetron PF 4 MG/2 ML Vial IVP PRN (18:00)
[2020-06-03] MEDS ORDERED: Potassium Chloride 20 MEQ TAB PO SCH (18:15)
[2020-06-03 18:21] LABS: Troponin I 0.041 ng/mL (< 0.028)
--- NOTE | 2020-06-03 19:15 | HP ---
PRIMARY CARE PHYSICIAN: Dr. Miles. CHIEF COMPLAINT: Shortness of breath and chest tightness with palpitations. HISTORY OF PRESENT ILLNESS: This is a 65-year-old white male with a known history of coronary artery disease, had a stent placed about 8 to [address] Monge. He had been on aspirin and Plavix since then, and then last month, he came in with a large amount of GI bleeding. Plavix was stopped, aspirin was continued, and he was sent home on iron. No other medication adjustments were made and he has not been drinking any more fluids than normal or any other change in his diet or medications. He reports that for the last 3, maybe 4 days, he has had some chest tightness across his entire chest, worse with getting up and moving around, is best when he is lying down and with his CPAP on at night and sleeping. He reported that his heart rate kept jumping up to the low 100s and then dropping back down the day of admission, so eventually came into the hospital. He had also noted for a day or two, maybe three days of lower extremity swelling up to his knees. The patient was seen in the emergency room. He was noted to have edema. He had an elevated D-dimer. Had a CTA of the chest, which showed congestive failure, but no clots. His blood count had been stable since his last admission. He was given Lasix here in the ER and has already urinated out over a liter of fluid and is feeling much better and the edema around his ankles has almost gone. He did have an elevated brain natriuretic peptide, an indeterminate troponin that is stable with his previous admission last month. REVIEW OF SYSTEMS: CONSTITUTIONAL: No fevers. No chills. EYES: No double vision or blurred vision. ENT: No congestion, drainage, or sore throat. CARDIOVASCULAR: See HPI. PULMONARY: See HPI. No coughing or wheezing. No sputum. GASTROINTESTINAL: No abdominal pain. No nausea or vomiting. No diarrhea or constipation. GENITOURINARY: No dysuria or hematuria. MUSCULOSKELETAL: No muscle aches or joint pain. SKIN: No rashes or lesions noted. NEUROLOGIC: No numbness, tingling, or focal weakness. PAST MEDICAL HISTORY: 1. Hypertension. 2. Coronary artery disease, status post stent. 3. Atrial fibrillation, self-limited, about 10 years ago during some sort of medical condition, resolved. 4. History of kidney stones. SURGICAL HISTORY: 1. Bilateral hip replacements. 2. Cardiac stent. 3. Left wrist surgery. 4. Left ankle surgery. 5. Hernia repair. FAMILY HISTORY: Positive for hypertension. SOCIAL HISTORY: No tobacco. No alcohol or illicit drug use. The patient is . He is a full code. Should he be incapacitated, his would be his medical decision maker. Her name is Lisa Segal. ALLERGIES: NO KNOWN DRUG ALLERGIES. CURRENT MEDICATIONS: 1. Aspirin 81 mg daily. 2. Lexapro 10 mg daily. 3. Zyrtec 10 mg daily. 4. Vitamin D3 1000 units daily. 5. Myrbetriq 50 mg each morning. 6. Lisinopril 40 mg daily. 7. Tamsulosin 0.4 mg 2 tablets at bedtime. 8. Iron 27 mg tablets daily. PHYSICAL EXAMINATION: VITAL SIGNS: Blood pressure 145/84, pulse 83, respirations 26, O2 saturation 96% on room air, temperature 99.0. GENERAL: This is a well-developed, well-nourished white male, in no acute distress. HEENT: Pupils are equal, round, and reactive to light. Oropharynx is clear without lesions, erythema, or exudate. NECK: Supple. No lymphadenopathy. No thyroid nodules or enlargement. No JVD. HEART: Regular rate and rhythm. No murmurs, rubs, or gallops. LUNGS: Clear to auscultation bilaterally. No wheezes, crackles, or rhonchi. ABDOMEN: Soft, obese, nontender to palpation. Normoactive bowel sounds. No hepatosplenomegaly or other masses. EXTREMITIES: No clubbing or cyanosis. He does have trace ankle edema, bilateral ankles. SKIN: No rashes or other lesions noted. NEUROLOGIC: The patient moves all extremities equally. No facial droop. PSYCHIATRIC: Alert and oriented x3. Normal mood and affect. LABORATORY DATA: CBC with a white blood cell count of 3.7, normal differential, hemoglobin 8.5, which is stable with his last check, hematocrit 25.9, platelet count normal. Coagulation profile with a D-dimer of 2.56. Complete metabolic panel is notable for a potassium of 3.3, chloride of 112, carbon dioxide of 21. The rest was normal. His troponin was indeterminate at 0.032, which is the same as on his last admission. Brain natriuretic peptide was elevated at 293. We do not have an old value to compare with. CTA angio of the chest and thorax showing no evidence for pulmonary embolism, but there is mild bilateral pleural effusions and cardiomegaly reflective of congestive heart failure and some patchy areas of ground glass airspace opacity, possibly airspace edema versus infectious or inflammatory pneumonitis, and a chronic T5 wedge compression abnormality. Chest x-ray, I did review the chest x-ray done in the emergency room along with the radiologist's report. The chest x-ray does show increased CHF changes from last admission. EKG shows normal sinus rhythm at 84 beats per minute with normal T-waves, normal ST segments, normal EKG. ASSESSMENT: 1. New-onset congestive heart failure. The patient had an echocardiogram done here in 2017, which did show some diastolic dysfunction, but maintained systolic ejection fraction. We will get an echocardiogram to confirm that his continues to be diastolic dysfunction as the origin. We will continue Lasix twice a day and we will consult Cardiology for evaluation given that he did have a stent placed in the past year and had to have his Plavix stopped before the congestive heart failure onset. Uncertain if there is a relationship between these two. 2. Hypokalemia. We will give patient a dose of potassium now and then do daily each morning to maintain levels while diuresing. 3. Anemia secondary to GI blood loss, now stable. We will continue patient's iron supplementation. 4. Hypertension. We will resume the patient's home medications. 5. Depression. We will resume the patient's home medications. 6. Recent GI bleed. We will continue patient's Protonix daily. 7. Benign prostatic hyperplasia. We will resume the patient's Flomax. 8. Coronary artery disease. We will continue patient's aspirin and we will trend troponins. 9. Deep venous thrombosis prophylaxis. We will put patient on SCDs while in bed now that his edema is improved. We will hold on any anticoagulation due to his recent GI bleed. 10. Code status: The patient is a full code. Should he be incapacitated, his would be his medical decision maker. Job ID: [id number]
[2020-06-03 20:06] LABS: Troponin I 0.047 ng/mL (< 0.028)
[2020-06-03] MEDS: Tamsulosin HCl 0.4 MG CAP PO SCH (21:39)
[2020-06-03] MEDS: Famotidine 20 MG TAB PO SCH (21:39)
[2020-06-03] MEDS ORDERED: Famotidine 20 MG TAB ONE (21:42)
[2020-06-04 01:17] LABS: SARS-CoV-2 MS2 Positive; SARS-CoV-2 N Gene Positive; SARS-CoV-2 S Gene Positive; SARS-CoV-2 by NAA DETECTED (NotDetected); SARS-CoV-2 orf1ab Positive
[2020-06-04] MEDS: Furosemide 40 MG/4 ML VIAL SLOW IVP SCH ×2 (06:11→14:09)
[2020-06-04] MEDS ORDERED: Furosemide 40 MG/4 ML VIAL ONE ×2 (06:13→13:59)
[2020-06-04 06:53] LABS: #Eosinphils 0.2 thou/uL (0.0-0.7); #Lymphocytes 1.2 thou/uL (1.20-3.40); #Monocytes 0.4 thou/uL (0.11-0.59); #Neutrophils 2.5 thou/uL (1.40-6.50); %Basophils 1.1 % (0.0-1.0); %Eosinophils 4.2 % (0.0-10.0); %Lymphocytes 27.6 % (21.0-51.0); %Monocytes 9.4 % (0.0-10.0); %Neutrophils 57.7 % (42.0-75.0); Hemoglobin 8.7 g/dL (14.0-18.0); Mean Corpuscular HGB CONC 32.4 g/dL (32.0-36.0); Mean Corpuscular Hemoglobin 26.2 pg (27.0-31.0); Mean Corpuscular Volume 80.9 fL (78.0-98.0); Platelet Count 196 thou/uL (130-400); RBC Distribution Width 14.5 % (11.5-14.5); Red Blood Cell (RBC) Count 3.31 mill/uL (4.70-6.10); White Blood Cell (WBC) Count 4.3 thou/uL (4.8-10.8)
[2020-06-04 07:12] LABS: Anion Gap 15 mmol/L (10-20); BUN (Urea Nitrogen) 13 mg/dL (8.4-25.7); Calc. Creatinine Clearance 0 mL/min (70-130); Calcium 8.7 mg/dL (7.8-10.44); Carbon Dioxide 23 mmol/L (23-31); Chloride 108 mmol/L (98-107); Glucose 101 mg/dL (80-115); Potassium 3.7 mmol/L (3.5-5.1); Sodium 142 mmol/L (136-145)
--- NOTE | 2020-06-04 08:36 | PDOC.HOSPP ---
- Subjective Encounter Date: 06/04/20 Encounter Time: 11:50 Subjective: Patient feeling much better. No SOB at rest. Edema in legs resolved. Hasn't gotten up to ambulate yet. ECHO still pending. - Objective Result Diagrams: 06/04/20 06:33 06/04/20 06:33 Hospitalist ROS - Review of Systems Constitutional: denies: fever, chills Respiratory: denies: cough, shortness of breath Cardiovascular: denies: chest pain, palpitations, edema Gastrointestinal: denies: nausea, vomiting, abdominal pain Genitourinary: denies: dysuria, hematuria - Medication Medications: Active Medications Generic Name Dose Route Start Last Admin Trade Name Freq PRN Reason Stop Dose Admin Famotidine 20 mg 06/03/20 21:00 06/03/20 21:39 Famotidine 20 Mg Tab PO 20 mg BID VIRGEN Administration Furosemide 40 mg 06/04/20 06:00 06/04/20 06:11 Furosemide 40 Mg/4 Ml Vial SLOW IVP 40 mg 0600,1400 VIRGEN Administration Tamsulosin HCl 0.8 mg 06/03/20 21:00 06/03/20 21:39 Tamsulosin Hcl 0.4 Mg Cap PO 0.8 mg HS VIRGEN Administration - Exam General Appearance: NAD, awake alert ENT: moist mucosa Heart: RRR, no murmur, no gallops, no rubs Respiratory: CTAB, no wheezes, no rales, no ronchi Gastrointestinal: soft, non-tender, non-distended, normal bowel sounds Extremities: no edema Psychiatric: normal affect, normal behavior, A&O x 3 Hosp A/P (1) Acute congestive heart failure Code(s): I50.9 - HEART FAILURE, UNSPECIFIED Status: Acute Plan: likely diastolic, ECHO pending (2) Hypokalemia Code(s): E87.6 - HYPOKALEMIA Status: Resolved (3) Anemia due to acute blood loss Code(s): D62 - ACUTE POSTHEMORRHAGIC ANEMIA Status: Acute Plan: stable (4) COVID-19 Code(s): U07.1 - COVID-19 Status: Acute Plan: First positive a month ago, no symptoms, no need for isolation at this point (5) BPH (benign prostatic hyperplasia) Code(s): N40.0 - BENIGN PROSTATIC HYPERPLASIA WITHOUT LOWER URINRY TRACT SYMP Status: Chronic (6) CAD (coronary artery disease) Code(s): I25.10 - ATHSCL HEART DISEASE OF [place] CORONARY ARTERY W/O ANG PCTRS Status: Chronic Qualifiers: Coronary Disease-Associated Artery/Lesion type: [place] artery [place] vs. transplanted heart: [place] heart (7) HTN (hypertension) Code(s): I10 - ESSENTIAL (PRIMARY) HYPERTENSION Status: Chronic - Plan Patient diuresing well. ECHO pending. Dr. Martinez consulted with concern about stent this year and symptoms onset after had to take off Plavix. If EF ok and ok with cardiology might be able to d/c home later today. DVT proph: SCDs GI Proph: Protonix
[2020-06-04] MEDS ORDERED: Aspirin Chewable 81 MG TAB ONE (09:32)
[2020-06-04] MEDS ORDERED: Lisinopril 10 MG TAB ONE (09:32)
[2020-06-04] MEDS ORDERED: Famotidine 20 MG TAB ONE (09:32)
[2020-06-04] MEDS ORDERED: Potassium Chloride 20 MEQ TAB ONE (09:32)
[2020-06-04] MEDS: Aspirin Chewable 81 MG TAB PO SCH (09:42)
[2020-06-04] MEDS: Potassium Chloride 20 MEQ TAB PO SCH (09:42)
[2020-06-04] MEDS: Famotidine 20 MG TAB PO SCH ×2 (09:43→21:26)
[2020-06-04] MEDS: Lisinopril 20 MG TAB PO SCH (09:44)
[2020-06-04] MEDS: Ferrous Sulfate 325 MG TAB PO SCH ×2 (09:58→17:09)
[2020-06-04] MEDS: Cholecalciferol 1,000 UNITS (25 MCG) TAB PO SCH (09:59)
[2020-06-04] MEDS: Escitalopram Oxalate 10 mg Tablet PO SCH (09:59)
[2020-06-04 12:23] LABS: SARS-CoV-2 MS2 Positive; SARS-CoV-2 N Gene Positive; SARS-CoV-2 S Gene Positive; SARS-CoV-2 by NAA DETECTED (NotDetected); SARS-CoV-2 orf1ab Positive
[2020-06-04 15:13] VITALS: BMI 31.6
[2020-06-04 15:54] LABS: Iron 22 ug/dL (65-175); Iron Binding Capacity, Total 415 mcg/dL (261-462)
--- NOTE | 2020-06-04 17:55 | CON ---
DATE OF CONSULTATION: 06/04/2020 REASON FOR CONSULTATION: Evaluate SARS-CoV-2 positive PCR test in a patient who initially tested positive more than 20 days ago and is readmitted because of palpitations. HISTORY OF PRESENT ILLNESS: A 65-year-old whom I had seen this year in December when he presented with a history of urethral stricture, BPH, nephrolithiasis with urosepsis. He had an ESBL E coli identified and had a successful voiding trial in the outpatient setting under Dr. Akers's supervision. Then, April, he came in with melena and hematemesis. He was given 2 units of packed red blood cells, IV fluids, and had an EGD, which showed gastritis, but no active bleeding. His COVID PCR test was positive though on May 12, although the patient did not have any of the typical symptoms of SARS-CoV-2 infection. He was released and has remained stable until 3 days before admission when he developed dyspnea, palpitations, some edema in lower extremities. He has a history of atrial fibrillation in the past. No headaches. No fever. No cough. No chest pain or abdominal pain. Voiding without difficulty. No diarrhea or constipation. No neurological symptoms. PAST MEDICAL AND SURGICAL HISTORY: Urosepsis due to ESBL E coli, BPH, urethral stricture, hypertension, coronary artery disease with stent, nephrolithiasis, bilateral hip replacements, wrist surgery, ankle surgery, hernia repair. SOCIAL HISTORY: Never smoker. ALLERGIES: NONE. MEDICATIONS: 1. Vitamin D. 2. Lexapro. 3. Feosol. 4. Lasix. 5. Ondansetron. 6. Tamsulosin. FAMILY HISTORY: Noncontributory. PHYSICAL EXAMINATION: VITAL SIGNS: He has been afebrile, O2 saturation 98% on room air, blood pressure 140/87. GENERAL: Appears in no distress. LYMPHS: No lymphadenopathy. HEENT: Ocular movements conjugate. Oral cavity normal. NECK: Supple. LUNGS: Symmetric, clear breath sounds. HEART: S1, S2. Regular rate. No S3 or S4. ABDOMEN: Soft, no ascites. No bladder distention. MUSCULOSKELETAL: No joint inflammatory activity. LABORATORY STUDIES: There is no microbiology data submitted at this time. White cell count is at 4.3, hemoglobin 8.7, platelets 196 with normal differential, lymphocyte is 1.2. D-dimer 2.56. Sodium 142, creatinine 0.98. Ferritin 17. BNP 293. Repeat serology for SARS-CoV-2 was detected again, not serology, but PCR. A CT scan performed on admission, maybe little areas with early edema, but nothing else to significance. ASSESSMENT: 1. Ischemic cardiomyopathy with prior stent, history of urosepsis in the past with extended-spectrum beta-lactamases Escherichia coli. 2. Recent episode of upper gastrointestinal bleed with no definitive source identified. During that episode, his screening SARS-CoV-2 PCR was positive, but did not have any of the typical symptoms. 3. Palpitations and some dyspnea, which led to his readmission with now persistence of the SARS-CoV-2 PCR positivity. DISCUSSION: The patient is now at 23 days, so he is way past the infectious period for his SARS-CoV-2 infection. We would advise discontinuation of isolation precautions. The possibility of cardiomyopathy needs to be considered and repeat echocardiogram recommended. We will check his urinalysis as well in view of the past history of urosepsis. I do not see any evidence to suggest cytokine storm or any other autoimmune phenomena that can be associated with the recovery phase of SARS-CoV-2 infection. Job ID: [id number] [facility]
[2020-06-04] MEDS ORDERED: Potassium Chloride 20 MEQ TAB PO SCH (19:15)
[2020-06-04 19:46] LABS: Bacteria/HPF None Seen HPF (None Seen); Bilirubin Negative (Negative); Blood, Urine Trace (Negative); Clarity Clear (Clear); Glucose, Urine (Dipstick) Normal (Negative); Ketone, Urine Negative (Negative); Leukocyte Negative Leu/uL (Negative); Nitrite Negative (Negative); Protein, Urine (Dipstick) Negative (Neg-Trace); RBC/HPF 0-3 HPF (0-3); Specific Gravity, Urine 1.013 (1.002-1.036); Squamous Epithelial None Seen HPF (0-3); Urobilinogen Normal mg/dL (Less than 2); WBC/HPF 0-3 HPF (0-3)
[2020-06-04] MEDS: Iron, Sodium Ferric Gluconate 250 MG in Sodium Chloride 0.9% 100 ML IVPB SCH (21:25)
[2020-06-04] MEDS: Tamsulosin HCl 0.4 MG CAP PO SCH (21:26)
--- NOTE | 2020-06-05 02:23 | CON ---
DATE OF CONSULTATION: PRIMARY TOOL PLANNER: Dr. Monge. REASON FOR CONSULTATION: Congestive heart failure. HISTORY OF PRESENT ILLNESS: Mr. Segal is a 65-year-old gentleman. The patient states he presented with exertional shortness of breath in August. He underwent cardiac catheterization and was found to have a severe stenosis in "the major blood vessel in my heart." He sounds like it was the LAD. The patient states there was an attempt to do the heart catheterization from the wrist, but the catheters would not pass. The catheterization was done from the right groin, but it was apparently very difficult due to tortuosity. According to the patient, he says he was told by Dr. Monge that it was an extremely difficult procedure. Ultimately, a stent was placed. The patient did well up until recently. He had the sudden onset of severe bleeding, vomiting up a large amount of blood and black material. He did have a very significant GI bleed. He was on aspirin and Plavix at that time. Later taken off Plavix. He had an upper GI scope done, which revealed antral gastritis with no evidence of any bleeding or lesion. It was really not completely clear what the source of the bleeding was sounds like. He was also found to have COVID pneumonia at that time, therefore, colonoscopy was not done. The patient states for about the last week he has had progressive shortness of breath and swelling of his lower extremities. He said he also had some rapid heart rate at home and was told he had atrial fibrillation, I do not see that on the EKGs here. The patient received diuretics with an excellent response. He is feeling much better now. He did not have any chest pain, but he did feel a pressure feeling in his chest continually when he was having trouble with breathing, that has currently resolved, especially after the diuresis. MEDICATIONS: At home; he was on 1. Lisinopril. 2. Aspirin. 3. Pantoprazole. 4. Iron twice a day. 5. Tamsulosin. ALLERGIES: NONE KNOWN. SOCIAL HISTORY: No alcohol or tobacco. REVIEW OF SYSTEMS: CONSTITUTIONAL: No significant weight gain or loss. VISION: No changes. HEARING: No changes. PULMONARY: No cough or wheezing. GASTROINTESTINAL: No nausea, vomiting, or diarrhea. No further bleeding symptoms. PHYSICAL EXAMINATION: GENERAL: This is a pleasant 65-year-old gentleman, in no distress. VITAL SIGNS: Blood pressure 138/89, pulse 75 and regular. LUNGS: Clear. CARDIAC: Normal S1, normal S2. ABDOMEN: Soft and nontender. EXTREMITIES: Warm and dry. No clubbing or cyanosis. There is no edema. LABORATORY DATA: Most recent potassium is 3.7. Iron level is very low at 22, ferritin is level is very low at 17.87. COVID test, still positive, but the patient is not felt to be actively infectious. EKG is sinus rhythm with PACs. ASSESSMENT: 1. Congestive heart failure, improved clinically, unknown previous ventricular function status. 2. Previous stent implantation in August. 3. Iron deficiency anemia, remains iron deficient. PLAN: 1. Continue diuresis. 2. Echocardiogram tomorrow. 3. Stress testing tomorrow. 4. We are trying to obtain some previous records about the details of the previous intervention, and also to re-evaluate the left ventricular function. Job ID: [id number]
[2020-06-05 05:08] LABS: Anion Gap 13 mmol/L (10-20); BUN (Urea Nitrogen) 19 mg/dL (8.4-25.7); Calc. Creatinine Clearance 95 mL/min (70-130); Carbon Dioxide 23 mmol/L (23-31); Chloride 106 mmol/L (98-107); Glucose 113 mg/dL (80-115); Potassium 4.3 mmol/L (3.5-5.1); Sodium 138 mmol/L (136-145)
[2020-06-05] MEDS: Furosemide 40 MG/4 ML VIAL SLOW IVP SCH ×2 (05:53→17:19)
[2020-06-05] MEDS: Ferrous Sulfate 325 MG TAB PO SCH ×2 (09:08→17:18)
[2020-06-05] MEDS: Potassium Chloride 20 MEQ TAB PO SCH (09:08)
[2020-06-05] MEDS: Aspirin Chewable 81 MG TAB PO SCH (09:08)
[2020-06-05] MEDS: Famotidine 20 MG TAB PO SCH ×2 (09:09→20:22)
[2020-06-05] MEDS: Cholecalciferol 1,000 UNITS (25 MCG) TAB PO SCH (09:09)
[2020-06-05] MEDS: Escitalopram Oxalate 10 mg Tablet PO SCH (09:09)
[2020-06-05] MEDS: Lisinopril 20 MG TAB PO SCH (09:09)
[2020-06-05] MEDS: Iron, Sodium Ferric Gluconate 250 MG in Sodium Chloride 0.9% 100 ML IVPB SCH (12:22)
--- NOTE | 2020-06-05 13:17 | PDOC.HOSPP ---
- Subjective Encounter Date: 06/05/20 Encounter Time: 09:10 Subjective: Patient seen he appears well. He is quite anxious to get the stress test done. Denies any chest discomfort. He is not on any isolation. - Objective Vital Signs & Weight: Vital Signs (12 hours) Temp Pulse Resp BP BP Pulse Ox 06/05/20 12:14 96 F L 77 20 105/62 94 L 06/05/20 09:06 97 120/69 06/05/20 07:43 97.9 F 76 20 101/61 97 06/05/20 04:00 98.8 F 69 18 136/75 94 L Weight Weight 217 lb 11.2 oz I&O: 06/04/20 06/05/20 06/06/20 06:59 06:59 06:59 Intake Total 940 Output Total 1375 900 Balance -435 -900 Result Diagrams: 06/04/20 06:33 06/05/20 04:28 Hospitalist ROS - Medication Medications: Active Medications Generic Name Dose Route Start Last Admin Trade Name Sabinoq PRN Reason Stop Dose Admin Aspirin 81 mg 06/04/20 09:00 06/05/20 09:08 Aspirin Chewable 81 Mg Tab PO 81 mg DAILY VIRGEN Administration Cholecalciferol 5,000 units 06/04/20 09:00 06/05/20 09:09 Cholecalciferol 1,000 Units (25 Mcg) Tab PO 5,000 units DAILY VIRGEN Administration Escitalopram Oxalate 10 mg 06/04/20 09:00 06/05/20 09:09 Escitalopram Oxalate 10 Mg Tablet PO 10 mg DAILY VIRGEN Administration Famotidine 20 mg 06/03/20 21:00 06/05/20 09:09 Famotidine 20 Mg Tab PO 20 mg BID VIRGEN Administration Ferrous Sulfate 325 mg 06/04/20 08:00 06/05/20 09:08 Ferrous Sulfate 325 Mg Tab PO 325 mg BID-WM VIRGEN Administration Furosemide 40 mg 06/04/20 06:00 06/05/20 05:53 Furosemide 40 Mg/4 Ml Vial SLOW IVP 40 mg 0600,1400 VIRGEN Administration Lisinopril 40 mg 06/04/20 09:00 06/05/20 09:09 Lisinopril 20 Mg Tab PO 40 mg DAILY VIRGEN Administration Mirabegron 50 mg 06/04/20 09:00 06/05/20 09:10 Mirabegron Er 25 Mg Tab PO 50 mg DAILY VIRGEN Administration Pantoprazole Sodium 40 mg 06/04/20 09:00 06/05/20 09:10 Pantoprazole 40 Mg Tab PO 40 mg DAILY VIRGEN Administration Potassium Chloride 20 meq 06/04/20 08:00 06/05/20 09:08 Potassium Chloride 20 Meq Tab PO 20 meq QAM-WM VIRGEN Administration Tamsulosin HCl 0.8 mg 06/03/20 21:00 06/04/20 21:26 Tamsulosin Hcl 0.4 Mg Cap PO 0.8 mg HS VIRGEN Administration - Exam General Appearance: NAD, awake alert Eye: PERRL ENT: normocephalic atraumatic Neck: supple Heart: RRR Respiratory: CTAB, normal chest expansion Gastrointestinal: soft, normal bowel sounds Extremities: no cyanosis, 1+ LE edema Neurological: no focal deficits Psychiatric: A&O x 3 Hosp A/P - Plan (1) Acute congestive heart failure Code(s): I50.9 - HEART FAILURE, UNSPECIFIED Status: Acute Plan: likely diastolic, ECHO pending (2) Hypokalemia Code(s): E87.6 - HYPOKALEMIA Status: Resolved (3) Anemia due to acute blood loss Code(s): D62 - ACUTE POSTHEMORRHAGIC ANEMIA Status: Acute Plan: stable (4) COVID-19 Code(s): U07.1 - COVID-19 Status: Acute Plan: First positive a month ago, no symptoms, no need for isolation at this point (5) BPH (benign prostatic hyperplasia) Code(s): N40.0 - BENIGN PROSTATIC HYPERPLASIA WITHOUT LOWER URINRY TRACT SYMP Status: Chronic (6) CAD (coronary artery disease) Status post 2 stent placement in August 2019 (7) HTN (hypertension) Code(s): I10 - ESSENTIAL (PRIMARY) HYPERTENSION Status: Chronic - Plan Stress test today Echo pending Cardiomyopathy his BNP is elevated with normal creatinine and he is being diuresed Repeat Covid positive
--- NOTE | 2020-06-05 17:40 | PRG ---
DATE OF SERVICE: 06/05/2020 SUBJECTIVE: Mr. Segal is breathing much better today. No chest pain. No shortness of breath. Feels dramatically better. He did receive the records. The patient had a stent in the diagonal branch. He has history of what appears to be diastolic heart failure with increased end-diastolic pressure at the time of cardiac catheterization. OBJECTIVE: VITAL SIGNS: Blood pressure 106/62, pulse 84. LUNGS: Clear. CARDIAC: Normal S1. Normal S2. ABDOMEN: Soft, nontender. ASSESSMENT: 1. Congestive heart failure, diastolic, acute on chronic, resolved. 2. Iron deficiency anemia. 3. Coronary artery disease. 4. Indeterminate troponin, probably related to the episode of heart failure. No significant peak and trough with a peak of 0.047. PLAN: 1. Okay to go home. 2. Add furosemide 40 mg a day. 3. Add potassium 20 mEq a day. 4. Stress testing not yet necessary at this point. He is to follow up closely with his lobby porter to see Dr. Monge next week. The patient's heart failure is now resolved. Echocardiogram revealed normal left ventricular function. The patient is totally comfortable now. Job ID: [id number]
[2020-06-05] MEDS: Tamsulosin HCl 0.4 MG CAP PO SCH (20:22)
[2020-06-06] MEDS: Aspirin Chewable 81 MG TAB PO SCH (07:31)
[2020-06-06] MEDS: Potassium Chloride 20 MEQ TAB PO SCH (07:31)
[2020-06-06] MEDS: Ferrous Sulfate 325 MG TAB PO SCH (07:31)
[2020-06-06] MEDS: Lisinopril 20 MG TAB PO SCH (07:32)
[2020-06-06] MEDS: Cholecalciferol 1,000 UNITS (25 MCG) TAB PO SCH (07:32)
[2020-06-06] MEDS: Famotidine 20 MG TAB PO SCH (07:33)
[2020-06-06] MEDS: Escitalopram Oxalate 10 mg Tablet PO SCH (07:34)
[2020-06-06 08:04] VITALS: TEMP 98.1
[2020-06-06 08:48] VITALS: BP 123/68
--- NOTE | 2020-06-06 14:36 | NM ---
Exam: Nuclear medicine rest only exam HISTORY: Chest pain. Examination canceled by Dr. Martinez after rest images were completed. As per Dr. Martinez, stress images not necessary. TECHNIQUE: Patient was administered 29.6 mCi of technetium 99 sestamibi intravenously. Rest only imag es were performed FINDINGS: Homogeneous distribution of radiotracer IMPRESSION: Incomplete exam. Homogeneous radiotracer distribution on the rest images.
--- NOTE | 2020-06-06 14:57 | PDOC.DS.DS ---
Provider - Provider Date of Admission: 06/04/20 15:27 Admitting Provider: Refugio Aviles DO Primary Care Physician: Unknown Course - Hospital Course Hospital Course: 65-year-old male male presented with Acute on chronic diastolic heart failure coronary artery disease status post 2 stent placement in August 2019 -Echo showed normal EF. (2) Hypokalemia Code(s): E87.6 - HYPOKALEMIA Status: Resolved (3) Anemia due to acute blood loss Code(s): D62 - ACUTE POSTHEMORRHAGIC ANEMIA Status: Acute Plan: stable (4) COVID-19 Code(s): U07.1 - COVID-19 Status: Acute Plan: First positive a month ago, no symptoms, no need for isolation at this point (5) BPH (benign prostatic hyperplasia) Code(s): N40.0 - BENIGN PROSTATIC HYPERPLASIA WITHOUT LOWER URINRY TRACT SYMP Status: Chronic (6) CAD (coronary artery disease) Status post 2 stent placement in August 2019 It has been evaluated her that stress testing is not necessary at this point. He can follow-up with his class c driver Dr. Lezama next week. And hemodynamically stable to be discharged home today. Discharge time over 30 minutes. Resuscitation Status: 06/03/20 17:54 Resuscitation Status Routine Resuscitation Status: FULL: Full Resuscitation Discussed with: Patient - Labs Lab Results: 06/04/20 06:33 06/05/20 04:28 Abnormal Lab Results - Last 48 hrs 06/04/20 15:05: Iron 22 L 06/04/20 15:05: Ferritin 17.87 L 06/04/20 19:20: Urine Blood Trace A - Physical Exam Vitals: Vital Signs (12 hours) Temp Pulse Resp BP BP BP Pulse Ox 06/06/20 07:30 123/68 06/06/20 07:15 98.1 F 81 22 H 100/56 L 98 06/06/20 04:03 98.2 F 68 21 H 116/63 99 Weight Weight 217 lb 6.4 oz Physical Exam: The patient was seen and examined on the day of discharge. 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 at [facility] on [address] [facility] in [place] Plan - Discharge Medications Prescriptions: Furosemide [Lasix] 40 mg PO DAILY 30 Days #30 tablet Potassium Chloride 20 meq PO DAILY 30 Days #30 ml Home Medications: Medication Instructions Recorded Confirmed Type Aspirin 81 mg PO DAILY 12/25/19 06/04/20 History Cetirizine HCl [Zyrtec] 10 mg PO DAILY 12/25/19 06/04/20 History Cholecalciferol (Vitamin D3) 5,000 unit PO DAILY 12/25/19 06/04/20 History [Vitamin D] Lisinopril [Zestril] 40 mg PO DAILY 12/25/19 06/04/20 History Mirabegron [Myrbetriq] 50 mg PO DAILY 12/25/19 06/04/20 History Tamsulosin HCl [Flomax] 2 cap PO HS 12/25/19 06/04/20 History Escitalopram Oxalate [Lexapro] 1 tab PO DAILY 05/12/20 06/04/20 History Ferrous Sulfate [Iron] 325 mg PO BID 06/04/20 06/04/20 History Pantoprazole [Protonix] 40 mg PO BID 06/04/20 06/04/20 History Furosemide [Lasix] 40 mg PO DAILY 30 Days #30 tablet 06/06/20 Rx Potassium Chloride 20 meq PO DAILY 30 Days #30 ml 06/06/20 Rx Allergies: No Known Allergies Allergy (Verified 06/04/20 20:06) - Discharge Instructions Discharge Instructions:: Follow-up PCP in 1 week Your class c driver Dr. Lezama in 1 week. Activity:: Activity as Tolerated Nourishment:: Heart Healthy Diet - Follow up Plan Referrals: Cardiac Rehab - [place] [Outside] - 7 Days (Your doctor has ordered outpatient cardiac rehab for you to begin within 1-2 weeks after you go home from the hospital. The location nearest to you is the [facility]. We will call you in 3-5 days to get you scheduled for your evaluation. If you do not receive a call, please reach out to us at [phone] and request an appointment.) Felix Lezama MD [MD Not on Staff] - 7 Days Arnulfo Miles MD [Active] - 06/18/20 10:15 am Disposition: HOME Quality - Care Measures CORE MEASURES:: N/A
--- NOTE | 2020-06-08 15:21 | EKG ---
Test Reason : EMERGENCY EXAM Blood Pressure : / mmHG Vent. Rate : 084 BPM Atrial Rate : 073 BPM P-R Int : 164 ms QRS Dur : 090 ms QT Int : 390 ms P-R-T Axes : 025 007 026 degrees QTc Int : 460 ms Sinus rhythm with Premature supraventricular complexes Otherwise normal ECG Confirmed by GOGO MOORE DO ([id number]), material expeditor ANDREIA SALMON ([id number]) on 06/08/2020 3:20:32 PM Referred By: Confirmed By:GOGO MOORE DO
== END 2020-06-06 10:25 | disposition home or self-care (01) | DRG 291 ==
LOC: ERS 12:39 → ERHOLD 16:57 → 2SW 06-04 14:37 → OBSVTOIN 06-04 15:27
PROVIDERS: ADMIT Family Medicine; ATTEND Internal Medicine
DX: I11.0 Hypertensive heart disease with heart failure (principal); U07.1 COVID-19; D62 Acute posthemorrhagic anemia; I50.33 Acute on chronic diastolic (congestive) heart failure; I25.10 Atherosclerotic heart disease of native coronary artery without angina pectoris; I48.91 Unspecified atrial fibrillation; F32.9 Major depressive disorder, single episode, unspecified; Z96.643 Presence of artificial hip joint, bilateral; I25.5 Ischemic cardiomyopathy; D50.9 Iron deficiency anemia, unspecified; N40.0 Benign prostatic hyperplasia without lower urinary tract symptoms; E87.6 Hypokalemia; Z99.89 Dependence on other enabling machines and devices; Z87.442 Personal history of urinary calculi; Z79.82 Long term (current) use of aspirin; Z79.899 Other long term (current) drug therapy; Z95.5 Presence of coronary angioplasty implant and graft
CPT/HCPCS: 36415; 71045; 71275; 78451; 80048; 80053; 81001; 82553; 82728; 83540; 83550; 83735; 83880; 84484; 85025; 85379; 87635; 93005; 93306; 93798; 94760; 96365; 96375; 96376; A9500; G0378; J1940; J2916; J3475; J3490; Q9967; U0003

== ENCOUNTER 2020-10-25 09:23 | Emergency (ER) | payer MEDICARE, OTHER ==
[2020-10-25] MEDS ORDERED: Ketorolac Tromethamine 30 MG/ML VIAL ONE (11:06)
[2020-10-25 11:18] LABS: Bacteria/HPF 4+ HPF (None Seen); Squamous Epithelial None Seen HPF (0-3); WBC/HPF Greater than 50 HPF (0-3)
[2020-10-25 11:19] LABS: Bilirubin Negative (Negative); Blood, Urine 3+ (Negative); Clarity Turbid (Clear); Glucose, Urine (Dipstick) Normal (Negative); Ketone, Urine Negative (Negative); Leukocyte 500 Leu/uL (Negative); Nitrite 2+ (Negative); Protein, Urine (Dipstick) 20 mg/dL (Neg-Trace); Specific Gravity, Urine 1.019 (1.002-1.036); Urobilinogen Normal mg/dL (Less than 2)
[2020-10-25 11:28] LABS: #Lymphocytes 0.8 thou/uL (1.20-3.40); #Monocytes 0.7 thou/uL (0.11-0.59); #Neutrophils 9.6 thou/uL (1.40-6.50); %Basophils 0.4 % (0.0-1.0); %Eosinophils 0.3 % (0.0-10.0); %Lymphocytes 6.7 % (21.0-51.0); %Monocytes 6.3 % (0.0-10.0); %Neutrophils 86.3 % (42.0-75.0); Mean Corpuscular HGB CONC 31.7 g/dL (32.0-36.0); Mean Corpuscular Hemoglobin 27.8 pg (27.0-31.0); Mean Corpuscular Volume 87.7 fL (78.0-98.0); Mean Platelet Volume 9.4 fL (7.4-10.4); Platelet Count 163 thou/uL (130-400); RBC Distribution Width 13.5 % (11.5-14.5); Red Blood Cell (RBC) Count 5.03 mill/uL (4.70-6.10); White Blood Cell (WBC) Count 11.2 thou/uL (4.8-10.8)
[2020-10-25 11:43] LABS: ALT (SGPT) 16 U/L (8-55); AST (SGOT) 14 U/L (5-34); Alkaline Phosphatase 86 U/L (40-110); Anion Gap 12 mmol/L (10-20); BUN (Urea Nitrogen) 24 mg/dL (8.4-25.7); Bilirubin, Total 1.1 mg/dL (0.2-1.2); CK (CPK) 39 U/L (30-200); Calc. Creatinine Clearance 0 mL/min (70-130); Calcium 9.8 mg/dL (7.8-10.44); Carbon Dioxide 22 mmol/L (23-31); Chloride 107 mmol/L (98-107); Globulin 3.9 g/dL (2.4-3.5); Glucose 115 mg/dL (80-115); Potassium 3.6 mmol/L (3.5-5.1); Protein, Total 7.9 g/dL (5.8-8.1); Sodium 137 mmol/L (136-145)
[2020-10-25] MEDS ORDERED: cefTRIAXone\\ROCEPHIN 2 GM VIAL ONE (12:00)
[2020-10-25] MEDS ORDERED: Acetaminophen 500 MG TAB ONE (12:00)
[2020-10-25 14:14] LABS: Lactic Acid 1.1 mmol/L (0.5-2.2)
== END 2020-10-25 14:08 | disposition home or self-care (01) ==
LOC: ERS 09:23
DX: N30.00 Acute cystitis without hematuria (principal); I10 Essential (primary) hypertension; Z79.82 Long term (current) use of aspirin; Z79.899 Other long term (current) drug therapy
CPT/HCPCS: 36415; 71045; 80053; 81003; 81015; 82550; 83605; 83880; 85025; 87040; 87077; 87086; 87186; 93005; 96365; 96366; 96375; J0696; J1885

== ENCOUNTER 2020-10-28 19:57 | Emergency (ER) | payer MEDICARE, OTHER ==
[2020-10-28 20:31] LABS: Bilirubin Negative (Negative); Blood, Urine 2+ (Negative); Clarity Clear (Clear); Glucose, Urine (Dipstick) Normal (Negative); Ketone, Urine Negative (Negative); Leukocyte 500 Leu/uL (Negative); Nitrite 2+ (Negative); Protein, Urine (Dipstick) 20 mg/dL (Neg-Trace); Specific Gravity, Urine 1.021 (1.002-1.036); Squamous Epithelial None Seen HPF (0-3); Urobilinogen Normal mg/dL (Less than 2); WBC/HPF 21-50 HPF (0-3); pH, Urine 5.5 (5.0-9.0)
[2020-10-28 20:36] LABS: Bacteria/HPF 1+ HPF (None Seen)
[2020-10-28 21:45] LABS: #Eosinphils 0.1 thou/uL (0.0-0.7); #Monocytes 0.4 thou/uL (0.11-0.59); #Neutrophils 4.3 thou/uL (1.40-6.50); %Basophils 0.8 % (0.0-1.0); %Eosinophils 0.9 % (0.0-10.0); %Lymphocytes 16.6 % (21.0-51.0); %Monocytes 6.4 % (0.0-10.0); %Neutrophils 75.3 % (42.0-75.0); Hemoglobin 12.6 g/dL (14.0-18.0); Mean Corpuscular Hemoglobin 29.5 pg (27.0-31.0); Mean Corpuscular Volume 86.8 fL (78.0-98.0); Mean Platelet Volume 9.1 fL (7.4-10.4); Platelet Count 162 thou/uL (130-400); RBC Distribution Width 13.1 % (11.5-14.5); Red Blood Cell (RBC) Count 4.25 mill/uL (4.70-6.10); White Blood Cell (WBC) Count 5.7 thou/uL (4.8-10.8)
[2020-10-28 22:04] LABS: Chloride 105 mmol/L (98-107); Potassium 3.5 mmol/L (3.5-5.1); Sodium 135 mmol/L (136-145)
[2020-10-28 22:05] LABS: Calcium 8.9 mg/dL (7.8-10.44); Glucose 113 mg/dL (80-115)
[2020-10-28 22:06] LABS: Protein, Total 6.9 g/dL (5.8-8.1)
[2020-10-28 22:07] LABS: Anion Gap 16 mmol/L (10-20); Bilirubin, Total 0.4 mg/dL (0.2-1.2); Carbon Dioxide 18 mmol/L (23-31)
[2020-10-28 22:08] LABS: Alkaline Phosphatase 75 U/L (40-110)
[2020-10-28 22:09] LABS: BUN (Urea Nitrogen) 21 mg/dL (8.4-25.7); Calc. Creatinine Clearance 0 mL/min (70-130)
[2020-10-28 22:11] LABS: ALT (SGPT) 18 U/L (8-55); AST (SGOT) 19 U/L (5-34)
[2020-10-28 22:24] LABS: Albumin 3.4 g/dL (3.4-4.8); Globulin 3.5 g/dL (2.4-3.5)
== END 2020-10-28 22:26 | disposition home or self-care (01) ==
LOC: ERS 19:57
DX: T83.511A Infection and inflammatory reaction due to indwelling urethral catheter, initial encounter (principal); I10 Essential (primary) hypertension; Z79.82 Long term (current) use of aspirin; Z79.899 Other long term (current) drug therapy
CPT/HCPCS: 36415; 80053; 81003; 81015; 83605; 85025; 87040; 87077; 87086; 87186; 96365; J1956

== ENCOUNTER 2021-09-27 11:57 | Emergency (ER) | payer MEDICARE, OTHER ==
[2021-09-27 12:45] LABS: #Basophils 0.1 thou/uL (0.0-0.2); #Eosinphils 0.2 thou/uL (0.0-0.7); #Monocytes 0.7 thou/uL (0.11-0.59); #Neutrophils 4.7 thou/uL (1.40-6.50); %Basophils 1.1 % (0.0-1.0); %Eosinophils 2.4 % (0.0-10.0); %Lymphocytes 15.6 % (21.0-51.0); %Monocytes 10.1 % (0.0-10.0); %Neutrophils 70.8 % (42.0-75.0); Hemoglobin 10.6 g/dL (14.0-18.0); Mean Corpuscular HGB CONC 31.9 g/dL (32.0-36.0); Mean Corpuscular Hemoglobin 29.2 pg (27.0-31.0); Mean Corpuscular Volume 91.5 fL (78.0-98.0); Platelet Count 238 thou/uL (130-400); RBC Distribution Width 15.3 % (11.5-14.5); Red Blood Cell (RBC) Count 3.62 mill/uL (4.70-6.10); White Blood Cell (WBC) Count 6.6 thou/uL (4.8-10.8)
[2021-09-27 12:58] LABS: INR-International Normal Ratio 1.1; PTT 34.3 sec (22.9-36.1); Prothrombin Time 14.7 sec (12.0-14.7)
[2021-09-27 13:05] LABS: ALT (SGPT) 16 U/L (8-55); AST (SGOT) 17 U/L (5-34); Albumin 4.3 g/dL (3.4-4.8); Alkaline Phosphatase 61 U/L (40-110); Anion Gap 17 mmol/L (10-20); BUN (Urea Nitrogen) 23 mg/dL (8.4-25.7); Bilirubin, Total 0.4 mg/dL (0.2-1.2); Calc. Creatinine Clearance 0 mL/min (70-130); Calcium 9.3 mg/dL (7.8-10.44); Carbon Dioxide 19 mmol/L (23-31); Chloride 106 mmol/L (98-107); Globulin 3.4 g/dL (2.4-3.5); Glucose 103 mg/dL (80-115); Lipase 19 U/L (8-78); Potassium 3.7 mmol/L (3.5-5.1); Protein, Total 7.7 g/dL (5.8-8.1); Sodium 138 mmol/L (136-145)
[2021-09-27 13:28] LABS: CKMB 0.6 ng/mL (0-6.6)
[2021-09-27 14:28] LABS: Bilirubin Negative (Negative); Blood, Urine Negative (Negative); Clarity Clear (Clear); Glucose, Urine (Dipstick) Normal (Negative); Ketone, Urine Negative (Negative); Leukocyte Negative Leu/uL (Negative); Nitrite Negative (Negative); Protein, Urine (Dipstick) Negative (Neg-Trace); Urobilinogen Normal mg/dL (Less than 2)
[2021-09-27 15:12] LABS: SARS-CoV-2 NAA Rapid Test Not Detected (NotDetected)
== END 2021-09-27 16:05 | disposition short-term general hospital (02) ==
LOC: ERS 11:57
DX: I20.8 Other forms of angina pectoris (principal); Z20.822 Contact with and (suspected) exposure to COVID-19; I10 Essential (primary) hypertension; Z79.82 Long term (current) use of aspirin; Z79.899 Other long term (current) drug therapy; E78.5 Hyperlipidemia, unspecified
CPT/HCPCS: 71045; 80053; 81003; 82553; 83690; 83880; 84484; 85025; 85610; 85730; 93005; U0002; 36415

== ENCOUNTER 2023-12-06 17:36 | Inpatient (IN) | payer MEDICARE ==
[2023-12-06] MEDS ORDERED: Ondansetron PF 4 MG/2 ML Vial IVP PRN (19:15)
[2023-12-06] MEDS ORDERED: Acetaminophen 325 MG TAB PO PRN (19:15)
[2023-12-06] MEDS: Pantoprazole 40 MG VIAL IVP SCH (20:17)
[2023-12-06] MEDS: Lactated Ringer's 1,000 ML IV SCH (20:17)
[2023-12-06 21:53] LABS: Hematocrit 27.8 % (42.0-52.0); Hemoglobin 8.9 g/dL (14.0-18.0)
[2023-12-06 22:27] LABS: Iron 40 ug/dL (65-175); Iron Binding Capacity, Total 315 mcg/dL (261-462)
[2023-12-06 22:57] LABS: Ferritin 13.28 ng/mL (22-322)
[2023-12-06 23:39] VITALS: BMI 31.4
[2023-12-07 04:48] LABS: #Basophils 0.07 10x3/uL (0.0-0.2); %Basophils 1.3 % (0.0-1.0); %Eosinophils 5.9 % (0.0-10.0); %Lymphocytes 29.6 % (21.0-51.0); %Monocytes 9.8 % (0.0-10.0); %Neutrophils 52.7 % (42.0-75.0); Hematocrit 26.6 % (42.0-52.0); Hemoglobin 8.5 g/dL (14.0-18.0); Mean Corpuscular Hemoglobin 27.3 pg (27.0-31.0); Mean Corpuscular Volume 85.5 fL (78.0-98.0); Mean Platelet Volume 12.1 fL (7.4-10.4); Platelet Count 187 10x3/uL (130-400); RBC Distribution Width 13.7 % (11.5-14.5); Red Blood Cell (RBC) Count 3.11 mill/uL (4.70-6.10)
[2023-12-07 05:23] LABS: Anion Gap 9 mmol/L (10-20); BUN (Urea Nitrogen) 30 mg/dL (8.4-25.7); Calc. Creatinine Clearance 104 mL/min (70-130); Calcium 8.8 mg/dL (7.8-10.44); Carbon Dioxide 20 mmol/L (23-31); Chloride 112 mmol/L (98-107); Estimated GFR 88; Glucose 92 mg/dL (80-115); Sodium 137 mmol/L (136-145)
[2023-12-07 06:10] LABS: Hematocrit 27.6 % (42.0-52.0); Hemoglobin 8.8 g/dL (14.0-18.0)
[2023-12-07] MEDS ORDERED: Escitalopram Oxalate 10 mg Tablet PO SCH (09:00)
[2023-12-07] MEDS: Ezetimibe 10 MG TAB PO SCH (10:12)
[2023-12-07] MEDS: Escitalopram Oxalate 10 mg Tablet PO SCH (10:13)
[2023-12-07 11:35] LABS: Hematocrit 28.3 % (42.0-52.0); Hemoglobin 9.2 g/dL (14.0-18.0)
[2023-12-08 05:01] LABS: #Basophils 0.07 10x3/uL (0.0-0.2); %Basophils 1.4 % (0.0-1.0); %Eosinophils 5.9 % (0.0-10.0); %Lymphocytes 27.2 % (21.0-51.0); %Monocytes 7.9 % (0.0-10.0); %Neutrophils 57.2 % (42.0-75.0); Hematocrit 28.2 % (42.0-52.0); Mean Corpuscular HGB CONC 31.9 g/dL (32.0-36.0); Mean Corpuscular Hemoglobin 26.4 pg (27.0-31.0); Mean Corpuscular Volume 82.7 fL (78.0-98.0); Mean Platelet Volume 12.1 fL (7.4-10.4); Platelet Count 184 10x3/uL (130-400); RBC Distribution Width 13.8 % (11.5-14.5); Red Blood Cell (RBC) Count 3.41 mill/uL (4.70-6.10)
[2023-12-08 05:25] LABS: Anion Gap 10 mmol/L (10-20); BUN (Urea Nitrogen) 20 mg/dL (8.4-25.7); Calc. Creatinine Clearance 102 mL/min (70-130); Calcium 8.8 mg/dL (7.8-10.44); Carbon Dioxide 21 mmol/L (23-31); Chloride 110 mmol/L (98-107); Estimated GFR 86; Glucose 96 mg/dL (80-115); Potassium 3.9 mmol/L (3.5-5.1); Sodium 137 mmol/L (136-145)
[2023-12-08] MEDS ORDERED: fentaNYL 50 mcg/mL 1 mL Vial ONE (13:16)
[2023-12-08] MEDS ORDERED: Lidocaine 1% PF 5 ML VIAL ONE (13:22)
[2023-12-08] MEDS ORDERED: PROPOFOL 200 MG/20 ML VIAL ONE (13:22)
[2023-12-09 04:43] LABS: #Basophils 0.04 10x3/uL (0.0-0.2); %Basophils 0.8 % (0.0-1.0); %Eosinophils 5.3 % (0.0-10.0); %Lymphocytes 23.7 % (21.0-51.0); %Monocytes 8.3 % (0.0-10.0); %Neutrophils 61.5 % (42.0-75.0); Hematocrit 28.1 % (42.0-52.0); Hemoglobin 9.1 g/dL (14.0-18.0); Mean Corpuscular HGB CONC 32.4 g/dL (32.0-36.0); Mean Corpuscular Hemoglobin 26.7 pg (27.0-31.0); Mean Corpuscular Volume 82.4 fL (78.0-98.0); Mean Platelet Volume 11.3 fL (7.4-10.4); Platelet Count 196 10x3/uL (130-400); RBC Distribution Width 13.8 % (11.5-14.5); Red Blood Cell (RBC) Count 3.41 mill/uL (4.70-6.10)
[2023-12-09 05:33] LABS: Anion Gap 11 mmol/L (10-20); BUN (Urea Nitrogen) 17 mg/dL (8.4-25.7); Calc. Creatinine Clearance 95 mL/min (70-130); Calcium 8.7 mg/dL (7.8-10.44); Carbon Dioxide 21 mmol/L (23-31); Chloride 108 mmol/L (98-107); Estimated GFR 79; Glucose 98 mg/dL (80-115); Potassium 4.1 mmol/L (3.5-5.1); Sodium 136 mmol/L (136-145)
[2023-12-09 12:16] VITALS: BP 142/66; TEMP 98
== END 2023-12-09 12:50 | disposition home or self-care (01) | DRG 378 ==
LOC: 2SW 17:36 → OBSVTOIN 12-07 13:18
PROVIDERS: ADMIT Family Medicine; ATTEND Internal Medicine
PROC: 0W3P8ZZ Control Bleeding in Gastrointestinal Tract, Via Natural or Artificial Opening Endoscopic (ICD-10-PCS; principal; 2023-12-08)
DX: K55.21 Angiodysplasia of colon with hemorrhage (principal); D62 Acute posthemorrhagic anemia; I50.32 Chronic diastolic (congestive) heart failure; I25.10 Atherosclerotic heart disease of native coronary artery without angina pectoris; E78.5 Hyperlipidemia, unspecified; I11.0 Hypertensive heart disease with heart failure; N20.0 Calculus of kidney; F32.A Depression, unspecified; G47.33 Obstructive sleep apnea (adult) (pediatric); R01.1 Cardiac murmur, unspecified; Z96.643 Presence of artificial hip joint, bilateral; K44.9 Diaphragmatic hernia without obstruction or gangrene; Z79.82 Long term (current) use of aspirin; Z79.899 Other long term (current) drug therapy; Z98.890 Other specified postprocedural states
CPT/HCPCS: 36415; 80048; 82607; 82728; 83540; 83550; 85014; 85018; 85025; C9113; J2704; J3010; J7120

== ENCOUNTER 2024-06-15 06:58 | Emergency (ER) | payer MEDICARE ==
[2024-06-15] MEDS ORDERED: Dexamethasone 4 MG TAB ONE (07:31)
[2024-06-15] MEDS ORDERED: Pseudoephedrine HCl 30 MG TAB PO SCH (08:45)
== END 2024-06-15 08:58 | disposition home or self-care (01) ==
LOC: ERS 06:58
DX: J02.9 Acute pharyngitis, unspecified (principal); I10 Essential (primary) hypertension; Z95.5 Presence of coronary angioplasty implant and graft
CPT/HCPCS: 87081; 87428; 87430; 99283; J8540